=== PATIENT | male | born 1930 | race Caucasian/White ===

== ENCOUNTER 2016-12-06 08:14 | Inpatient (IN) | payer MEDICARE, SELFPAY ==
[2016-12-06] MEDS ORDERED: Meropenem 500 MG SDV ONE (08:18)
[2016-12-06] MEDS ORDERED: Dextrose 5%-Lactated Ringers 1,000 ML IV SCH (10:30)
[2016-12-06] MEDS ORDERED: Succinylcholine/Normal Saline 200 MG/10 ML Syringe ONE (11:48)
[2016-12-06] MEDS ORDERED: Ondansetron 4 MG/2 ML SDV ONE (11:48)
[2016-12-06] MEDS ORDERED: Dexamethasone 4 MG/ML SDV ONE (11:48)
[2016-12-06] MEDS ORDERED: fentaNYL 250 MCG/5 ML SDV ONE (11:48)
[2016-12-06] MEDS ORDERED: Rocuronium 50 MG/5 ML Vial ONE (11:48)
[2016-12-06] MEDS ORDERED: Propofol 200 MG/20 ML SDV ONE (11:48)
[2016-12-06] MEDS ORDERED: Neostigmine Methylsulfate 1 MG/ML 5 ML Syringe ONE (11:48)
[2016-12-06] MEDS ORDERED: Naloxone 0.4 MG/ML SDV IVPUSH PRN (12:00)
[2016-12-06] MEDS ORDERED: Scopolamine 1.5 MG Transdermal Patch ONE (13:00)
[2016-12-06] MEDS: cefOXitin 2 GM in Sodium Chloride 0.9% 50 ML IV ONE ×2 (13:28→17:20)
[2016-12-06] MEDS ORDERED: fentaNYL 100 MCG/2 ML SDV ONE (13:55)
[2016-12-06] MEDS ORDERED: Sodium Chloride 0.9% 10 ML ONE (13:56)
[2016-12-06] MEDS ORDERED: Lactated Ringers 1,000 ML ONE (14:16)
[2016-12-06] MEDS ORDERED: diphenhydrAMINE 50 MG/ML SDV IVPUSH PRN (16:03)
[2016-12-06] MEDS ORDERED: Meperidine PF 50 MG/ML Syringe IM PRN (16:04)
[2016-12-06] MEDS ORDERED: Ondansetron 4 MG/2 ML SDV IVPUSH PRN (16:07)
[2016-12-06] MEDS: fentaNYL 2,500 MCG in Sodium Chloride 0.9% 200 ML EPIDUR SCH (16:11)
[2016-12-06] MEDS: Dextrose 5%-Lactated Ringers 1,000 ML IV SCH (16:37)
[2016-12-06] MEDS: Naloxone 0.4 MG/ML SDV IV PRN (16:37)
[2016-12-06] MEDS: VERIFY SCOPOLAMINE PATCH TOP SCH (17:19)
[2016-12-06] MEDS: Pantoprazole 40 MG Vial IV SCH (17:19)
[2016-12-06] MEDS: Acetaminophen 1,000 MG in Premix Bag 1 BAG IV SCH (19:55)
[2016-12-06] MEDS: cefOXitin 2 GM in Sodium Chloride 0.9% 50 ML IV SCH (20:30)
[2016-12-06] MEDS: Tamsulosin 0.4 MG Cap.ER PO SCH (20:51)
[2016-12-06] MEDS ORDERED: Carvedilol 12.5 MG Tab PO SCH (21:00)
[2016-12-06] MEDS ORDERED: Lactated Ringers 500 ML IV SCH (21:00)
[2016-12-07] MEDS: Naloxone 0.4 MG/ML SDV IV PRN ×3 (00:03→19:09)
[2016-12-07] MEDS: Dextrose 5%-Lactated Ringers 1,000 ML IV SCH ×3 (00:03→19:09)
[2016-12-07] MEDS ORDERED: Lactated Ringers 500 ML IV SCH (00:45)
[2016-12-07] MEDS: Acetaminophen 1,000 MG in Premix Bag 1 BAG IV SCH ×2 (01:36→09:18)
[2016-12-07] MEDS: cefOXitin 2 GM in Sodium Chloride 0.9% 50 ML IV SCH ×2 (02:05→10:03)
[2016-12-07] MEDS ORDERED: Lactated Ringers 500 ML IV ONE (05:00)
[2016-12-07] MEDS ORDERED: Enoxaparin 40 MG/0.4 ML Syringe SUBCUT ONE (09:00)
[2016-12-07] MEDS: Spironolactone 25 MG Tab PO SCH (09:20)
[2016-12-07] MEDS: Ibuprofen 400 MG Tab PO SCH ×3 (09:20→21:45)
[2016-12-07] MEDS: Sennosides 8.6 MG Tab PO SCH (09:21)
[2016-12-07] MEDS: Bisacodyl 5 MG Tab PO SCH ×2 (09:21→21:45)
[2016-12-07] MEDS: Carvedilol 6.25 MG Tab PO SCH ×2 (09:22→21:45)
[2016-12-07] MEDS: VERIFY SCOPOLAMINE PATCH TOP SCH (10:02)
--- NOTE | 2016-12-07 10:49 | PN ---
DATE OF SERVICE: 12/07/2016 The patient has been afebrile with stable vital signs and needs some additional IV fluid for urine output issues overnight. Otherwise, he has been clinically stable. Oral intake was fair. We will begin a regular diet today and start the scheduled ibuprofen and tramadol along with senna and Dulcolax tablets. I will turn down the IV rate later today and plan to proceed with delayed primary closure. We will hold Lovenox for today and start that after the epidural catheter is taken out tomorrow morning at the time of the delayed primary closure. Arturo Philip MD /[id number]
[2016-12-07] MEDS: traMADol 50 MG Tab PO SCH ×3 (11:30→23:28)
[2016-12-07] MEDS: fentaNYL 2,500 MCG in Sodium Chloride 0.9% 200 ML EPIDUR SCH (14:43)
[2016-12-07] MEDS: Acetaminophen 325 MG Tab PO SCH ×2 (14:47→19:30)
[2016-12-07] MEDS: Pantoprazole 40 MG Vial IV SCH (17:45)
[2016-12-07] MEDS: Tamsulosin 0.4 MG Cap.ER PO SCH (21:45)
[2016-12-08] MEDS: Furosemide 20 MG/2 ML VIAL IVPUSH ONE ×2 (00:42→00:55)
[2016-12-08] MEDS ORDERED: Lactated Ringers 500 ML IV SCH (01:00)
[2016-12-08] MEDS: Acetaminophen 325 MG Tab PO SCH ×4 (01:13→20:28)
[2016-12-08] MEDS: traMADol 50 MG Tab PO SCH ×4 (03:39→22:56)
[2016-12-08] MEDS ORDERED: Furosemide 20 MG/2 ML VIAL IVPUSH ONE (04:21)
[2016-12-08] MEDS: Ibuprofen 400 MG Tab PO SCH ×4 (05:03→22:56)
[2016-12-08] MEDS: Dextrose 5%-Lactated Ringers 1,000 ML IV SCH ×3 (06:04→19:04)
[2016-12-08] MEDS: Naloxone 0.4 MG/ML SDV IV PRN (06:05)
[2016-12-08] MEDS ORDERED: Bupivacaine 0.5% 50 ML MDV ONE (06:54)
[2016-12-08] MEDS ORDERED: Lidocaine 1% with EPINEPHrine 1:100,000 50 ML MDV ONE (06:54)
[2016-12-08] MEDS ORDERED: Meropenem 500 MG SDV ONE (06:55)
[2016-12-08] MEDS ORDERED: Propofol 200 MG/20 ML SDV ONE (07:22)
[2016-12-08] MEDS ORDERED: Magnesium Hydroxide 400 MG/5 ML Susp 30 ML Cup PO ONE (10:00)
[2016-12-08] MEDS: Bisacodyl 5 MG Tab PO SCH ×2 (10:26→20:30)
[2016-12-08] MEDS: Spironolactone 25 MG Tab PO SCH (10:29)
[2016-12-08] MEDS: Sennosides 8.6 MG Tab PO SCH (10:30)
[2016-12-08] MEDS: VERIFY SCOPOLAMINE PATCH TOP SCH (10:31)
[2016-12-08] MEDS: Carvedilol 6.25 MG Tab PO SCH ×2 (10:32→20:29)
[2016-12-08] MEDS: Haloperidol Lactate 5 MG/ML SDV IV PRN ×2 (15:20→19:51)
[2016-12-08] MEDS: Pantoprazole 40 MG Vial IV SCH (16:56)
[2016-12-08] MEDS ORDERED: Lactated Ringers 500 ML IV STA (18:32)
[2016-12-08] MEDS: Tamsulosin 0.4 MG Cap.ER PO SCH (20:31)
[2016-12-08] MEDS ORDERED: Lidocaine 2% Jelly 10 ML Urojet MUCMEM ONE (22:48)
[2016-12-08] MEDS ORDERED: Lidocaine 2% Jelly 10 ML Urojet ONE (23:19)
[2016-12-09] MEDS: Haloperidol Lactate 5 MG/ML SDV IV PRN (00:57)
[2016-12-09] MEDS: Acetaminophen 325 MG Tab PO SCH ×4 (02:35→20:42)
[2016-12-09] MEDS: traMADol 50 MG Tab PO SCH (04:07)
[2016-12-09] MEDS: Ibuprofen 400 MG Tab PO SCH ×4 (06:59→21:22)
[2016-12-09] MEDS: Carvedilol 6.25 MG Tab PO SCH ×2 (08:31→20:43)
[2016-12-09] MEDS: Spironolactone 25 MG Tab PO SCH (08:31)
[2016-12-09] MEDS: Enoxaparin 40 MG/0.4 ML Syringe SUBCUT SCH (08:32)
[2016-12-09] MEDS: Bisacodyl 5 MG Tab PO SCH ×2 (08:32→20:42)
[2016-12-09] MEDS: Sennosides 8.6 MG Tab PO SCH (08:32)
[2016-12-09] MEDS: Pantoprazole 40 MG Tab.CR PO SCH (15:52)
[2016-12-09] MEDS: Dextrose 5%-Lactated Ringers 1,000 ML IV SCH (15:53)
[2016-12-09] MEDS: Tamsulosin 0.4 MG Cap.ER PO SCH (20:43)
[2016-12-10] MEDS: Dextrose 5%-Lactated Ringers 1,000 ML IV SCH (00:10)
[2016-12-10] MEDS: Acetaminophen 325 MG Tab PO SCH ×4 (03:29→21:22)
[2016-12-10] MEDS: Ibuprofen 400 MG Tab PO SCH ×4 (05:13→21:22)
[2016-12-10] MEDS ORDERED: Sodium Chloride 0.9% 10 ML Syringe IV PRN (07:44)
[2016-12-10] MEDS: Pantoprazole 40 MG Tab.CR PO SCH (07:47)
[2016-12-10] MEDS: Carvedilol 6.25 MG Tab PO SCH ×2 (08:54→21:21)
[2016-12-10] MEDS: Enoxaparin 40 MG/0.4 ML Syringe SUBCUT SCH (08:55)
[2016-12-10] MEDS: Spironolactone 25 MG Tab PO SCH (08:55)
[2016-12-10] MEDS: Sennosides 8.6 MG Tab PO SCH (14:37)
[2016-12-10] MEDS: Tamsulosin 0.4 MG Cap.ER PO SCH (21:21)
[2016-12-11] MEDS: Acetaminophen 325 MG Tab PO SCH ×2 (01:43→07:10)
[2016-12-11] MEDS ORDERED: Witch Hazel Medicated Pads 100/Jar TOP PRN (01:51)
[2016-12-11] MEDS: Bisacodyl 5 MG Tab PO SCH (04:51)
[2016-12-11] MEDS: Ibuprofen 400 MG Tab PO SCH ×2 (05:52→10:01)
[2016-12-11 07:00] VITALS: BP 115/62
[2016-12-11] MEDS: Pantoprazole 40 MG Tab.CR PO SCH (07:11)
[2016-12-11] MEDS: Carvedilol 6.25 MG Tab PO SCH (08:01)
[2016-12-11] MEDS: Enoxaparin 40 MG/0.4 ML Syringe SUBCUT SCH (08:02)
[2016-12-11] MEDS: Spironolactone 25 MG Tab PO SCH (08:02)
[2016-12-11] MEDS: Sennosides 8.6 MG Tab PO SCH (08:02)
--- NOTE | 2016-12-12 09:05 | PN ---
DATE OF SERVICE: 12/09/2016 The patient has been afebrile with stable vital signs. Oral intake was fair, around 700 mL, and he moved his bowels. He, in the nighttime especially, is very confused. He did pull his IV out once and was restarted. He also retained urine and Trivedi catheter was placed back. He is on Flomax. The plan at this point will be to continue the oral intake. We will leave the Trivedi catheter until tomorrow morning and maximize activity, and discontinue the tramadol as that is the primary medication that might be causing some confusion. Arturo Philip MD /[id number]
--- NOTE | 2016-12-12 10:32 | PN ---
DATE OF SERVICE: 12/10/2016 The patient has been afebrile with stable vital signs, and confusion is improving somewhat. Oral intake has stabilized. He has not voided after the urinary catheter has been removed this morning. Urine output was 3600 mL yesterday, so we will saline lock the IV, and he is on regular diet. We will have discharge planning evaluate the home situation. He may be ready for discharge home tomorrow depending on how discharge planning evaluation goes. Arturo Philip MD /[id number]
--- NOTE | 2016-12-12 10:38 | DISCH ---
FINAL DIAGNOSES: 1. Sigmoid colon mass. 2. History of coronary artery disease, status post biventricular pacemaker insertion. 3. Posterior aortic and mitral insufficiency. 4. History of ischemic cardiomyopathy. 5. History of hearing loss. 6. History of hemorrhoids. 7. History of arthritis. 8. Postoperative urinary retention. 9. Transient postoperative confusion. OPERATIVE PROCEDURE: On 12/06, exploratory laparotomy with: 1. Rectosigmoid colon resection with coloproctostomy. 2. Mobilization of splenic flexure to facilitate the pelvic anastomosis. 3. Mobilization of omentum into pelvis to displace small bowel from pelvis. HOSPITAL COURSE: This is an 86-year-old male, recently presenting with a large mass in the distal sigmoid colon. After preoperative evaluation and discussion, he wished to proceed with a resection of this. Using the fast-track protocol, this was accomplished on the day of admission. Postoperatively, the patient did have some urinary retention, but is now urinating satisfactorily and otherwise had some transient confusion. He did receive some dose of Haldol. This has now well cleared. He will be discharged home on ibuprofen 400 mg p.o. q.6 hours p.r.n. along with Tylenol 650 mg p.o. q.4 hours p.r.n., and otherwise, we will continue his usual at-home medications. Pathology on the resected specimen is pending. The followup Dr. Philip, 12/16/[address] Jeff in around 2 weeks for general medical followup.
--- NOTE | 2016-12-12 10:47 | PN ---
DATE OF SERVICE: 12/08/2016 The patient has been afebrile with stable vital signs. He had increased pulse pressure overnight, and we gave him some Lasix today with good urine output resulting from that. Otherwise, he has been fairly confused overnight. This hopefully will clear as we get the epidural catheter infusion off and daylight hits. Otherwise, he will be given some Haldol p.r.n. Trivedi catheter will be removed and will do the delayed primary closure. Otherwise, resume oral intake. Arturo Philip MD /[id number]
--- NOTE | 2016-12-14 17:10 | OR ---
DATE OF PROCEDURE: 12/08/2016 PREOPERATIVE DIAGNOSIS: Open abdominal incision. POSTOPERATIVE DIAGNOSIS: Open abdominal incision. OPERATIVE PROCEDURE: Delayed primary closure of open abdominal incision. ANESTHESIA: Local plus IV sedation. INDICATION FOR PROCEDURE: The patient is an 86-year-old status post rectosigmoid resection 48 hours earlier. At the time of the procedure, the patient was felt to be at high risk for wound infection . Primary closure was undertaken. Given this, the wound was packed open for a planned delayed primary closure at this time. Potential risks of the procedure including bleeding and infection were reviewed, and the patient wishes to proceed. DETAILS OF PROCEDURE: The patient was taken to the operating room and placed in a supine position. IV sedation was administered, after which the operative dressing was taken down. The wound was inspected and found to be clean. The area was then prepped and draped, anesthetized with 1% lidocaine mixed with Marcaine and irrigated with meropenem-containing saline solution. The incision was then closed with a layer of 3-0 Vicryl stitch deep and 4- 0 Vicryl subdermal stitches along with alexys. A dressing was applied. The patient was taken to the recovery room in satisfactory condition. Arturo Philip MD /[id number]
--- NOTE | 2016-12-15 15:16 | OR ---
DATE OF PROCEDURE: 12/06/2016 PREOPERATIVE DIAGNOSIS: Distal sigmoid colon mass. POSTOPERATIVE DIAGNOSIS: Distal sigmoid colon mass. PROCEDURES: Exploratory laparotomy with: 1. Rectosigmoid colon resection with coloproctostomy (28946). 2. Mobilization of splenic flexure to facilitate the coloproctostomy ([id number]). 3. Mobilization of omentum into pelvis to displace small bowel from pelvic and abdominal bhandari (26094). ANESTHESIA: General plus epidural. INDICATIONS FOR PROCEDURE: This is an 86-year-old male who underwent a colonoscopy last week, which showed a large mass within the distal sigmoid colon. This was right around 25 cm from the dentate line. Plan is to proceed with a resection of that area. Potential risks including bleeding, infection, injury to underlying viscera such as the ureters or adjacent to the bowel, possible leaks from GI tract closures were all reviewed, and the patient wishes to proceed. DETAILS OF PROCEDURE: The patient was taken to the operating room. After general endotracheal anesthesia was induced, the patient was placed in a lithotomy position. Trivedi catheter was inserted and the abdomen prepped and draped. A midline incision was then made from the umbilicus down to the level of the pubis, carried down to full-thickness abdominal wall. Upon entering the peritoneal cavity, general exploration was undertaken. The mass within the distal sigmoid colon could then easily be identified. This did not appear to have any fixation to the adjacent pelvic structures, and there was no obvious lymphadenopathy within the superior hemorrhoidal column or periaortic area, likewise there were no areas of peritoneal seeding or ascites and no liver or other visceral metastases evident. At this point, the proximal sigmoid colon was divided with the VAHID stapler. The peritoneal reflection of the proximal sigmoid colon and descending colon and then splenic flexure were then taken down with Harmonic scalpel. Mobilization of splenic flexure then allowed the divided end of the sigmoid colon to be delivered well into the pelvis. At this point the rectum was mobilized upward, and roughly 8 cm distal to the palpable mass, the rectum was divided with the VAHID stapler as well. The peritoneal side of the distal segment of the colon and rectum was then divided, and at that point, the superior hemorrhoidal vessels were divided with VAHID alexys near its origin. Again dissection continued downward with care used to avoid injury to the right and left ureters and then Steri-Strips were sequentially divided with the VAHID alexys as well, and the specimen delivered from the field. At this point, the anal opening was assessed and this felt it would accommodate a 28-mm EEA stapler. The anvil of the stapler was then placed into the distal sigmoid colon after this was opened and then re-stapled. The main body of the EEA stapler was brought rectally up to the apex of the rectal staple line, and then 2 components of stapler connected, fired, and the coloproctostomy accomplished. Upon removal of stapler, double donuts of mucosa were noted within it, and the area was then inspected with colonoscope while submerged with antibiotic-containing saline solution. Anastomosis was grossly intact with good blood supply identified on each side and no air bubbles or signs of leak were seen. The colonoscope was then removed. The coloproctostomy was then reinforced with some 3-0 Vicryl seromuscular stitch, along with fibrin sealant. In the event, the patient would at any point require pelvic radiation, the omentum was mobilized down into the pelvis to displace the small bowel away from those areas. This was fixed with some 3-0 Vicryl stitch and, at that point, the midline peritoneum was approximated with #2 Vicryl stitch, as was the anterior rectus sheath and fascia. The skin and subcutaneous tissue were felt to be high risk for a wound infection if primary closure was undertaken. Given this, these were packed open for a planned delayed primary closure in 48 hours. There were no evident complications. The patient was taken to the recovery room in a satisfactory condition. Arturo Philip MD /[id number]
== END 2016-12-11 10:30 | disposition still patient (30) | DRG 330 ==
LOC: JP.SDSSCHI 09:35 → JP.SDS 09:35 → EDSTATUS 12:30 → JP.MS 15:45
PROVIDERS: ADMIT Surgery; ATTEND Surgery
PROC: 0DBP0ZZ Excision of Rectum, Open Approach (ICD-10-PCS; principal; 2016-12-06)
PROC: 0DBN0ZZ Excision of Sigmoid Colon, Open Approach (ICD-10-PCS; principal; 2016-12-06)
PROC: 0WQF0ZZ Repair Abdominal Wall, Open Approach (ICD-10-PCS; 2016-12-08)
DX: C7A.025 Malignant carcinoid tumor of the sigmoid colon (principal); C19 Malignant neoplasm of rectosigmoid junction; C18.7 Malignant neoplasm of sigmoid colon; Z95.0 Presence of cardiac pacemaker; R33.9 Retention of urine, unspecified; R41.0 Disorientation, unspecified; Z48.1 Encounter for planned postprocedural wound closure; I11.0 Hypertensive heart disease with heart failure; I50.9 Heart failure, unspecified; I25.5 Ischemic cardiomyopathy; I25.10 Atherosclerotic heart disease of native coronary artery without angina pectoris; M19.90 Unspecified osteoarthritis, unspecified site; H91.90 Unspecified hearing loss, unspecified ear; I35.0 Nonrheumatic aortic (valve) stenosis; I35.1 Nonrheumatic aortic (valve) insufficiency; I34.0 Nonrheumatic mitral (valve) insufficiency; Z79.82 Long term (current) use of aspirin
CPT/HCPCS: 36415; 80048; 82378; 83735; 83880; 84100; 88309; 94762; 97110-GP; 97162-GP; 97530-GP; A9270-GY; C9113; J0131; J0694; J1100; J1200; J1630; J1650; J1940; J2175; J2185; J2310; J2405; J2704; J3010; J7042; J7050; J7120

== ENCOUNTER 2017-06-15 08:01 | Day surgery (SDC) | payer MEDICARE, SELFPAY ==
[2017-06-15] MEDS ORDERED: Dextrose 5%-Lactated Ringers 1,000 ML IV SCH (08:30)
[2017-06-15] MEDS ORDERED: fentaNYL 100 MCG/2 ML SDV ONE (08:53)
[2017-06-15] MEDS ORDERED: Propofol 200 MG/20 ML SDV ONE (08:53)
[2017-06-15 11:28] VITALS: BP 122/67
--- NOTE | 2017-06-20 13:05 | OR ---
DATE OF PROCEDURE: 06/15/2017 PREOPERATIVE DIAGNOSIS: Status post sigmoid colon resection for carcinoma. POSTOPERATIVE DIAGNOSIS: Two tiny areas of fleshy tissue at colorectal anastomosis. OPERATIVE PROCEDURE: Flexible colonoscopy with biopsies of colorectal anastomosis. ANESTHESIA: IV sedation. INDICATION FOR PROCEDURE: This is an 86-year-old status post sigmoid colon resection for carcinoma in December of this year. Plan is to proceed with a flexible colonoscopy with biopsies as indicated. Potential risks including bleeding and perforation were discussed, and the patient wishes to proceed. DETAILS OF PROCEDURE: The patient was taken to the operating room and placed in a left lateral decubitus position. IV sedation was administered, after which the colonoscope was passed into the rectum, and thereafter passed eventually to the level of the cecum. The colorectal anastomosis was identified. There were two tiny fleshy areas not more than half millimeter in size along the anastomosis. Otherwise, the colonoscopy was entirely normal. Upon withdrawal of the scope, with the prep being quite good, those 2 areas were excised by means of biopsy forceps and sent for histologic evaluation. Minimal bleeding from the biopsy sites was seen and the procedure then concluded. Assuming these are benign, the patient should undergo a repeat colonoscopy in 1 year. If they happen to be malignant, we will see the patient back in the short-term and decide treatment options. Arturo Philip MD /[id number]
== END 2017-06-15 11:15 | disposition home or self-care (01) ==
LOC: JP.SDS 08:01
PROVIDERS: ATTEND Surgery
DX: K91.89 Other postprocedural complications and disorders of digestive system (principal); K52.9 Noninfective gastroenteritis and colitis, unspecified; C18.7 Malignant neoplasm of sigmoid colon; I25.10 Atherosclerotic heart disease of native coronary artery without angina pectoris; I25.2 Old myocardial infarction; Z90.49 Acquired absence of other specified parts of digestive tract
CPT/HCPCS: 45380; J2704; J3010; J7042; 88305

== ENCOUNTER 2017-08-24 12:23 | Emergency (ER) | payer MEDICARE, SELFPAY ==
[2017-08-24 12:59] VITALS: BP 118/66
--- NOTE | 2017-08-24 13:57 | EDM.PDOC ---
ED HPI GENERAL MEDICAL PROBLEM - General Chief Complaint: Gastrointestinal Problem Stated Complaint: WILL HAS A PACE MAKER Time Seen by Provider: 08/24/17 13:30 Source of Information: Reports: Patient, Family History Limitations: Reports: No Limitations - History of Present Illness INITIAL COMMENTS - FREE TEXT/NARRATIVE: 87-year-old male who has a pacemaker that is scheduled to get a battery replacement in the near future is worried that something is wrong because every morning for the last 7-10 days he's had some nausea for the first 1-2 hours upon awaking. Eating or drinking something helps. No fever or chills, no vomiting, no diarrhea, no other symptoms. He feels no palpitations, shortness of breath or chest pain. He called the cardiology clinic to ask them if they thought the nausea could be related to his pacemaker and they told him to come to the emergency room. He arrives completely asymptomatic, stable, without current symptoms. Severity: Mild Improves with: Reports: Other (Seems to improve with putting something into his stomach such as drinking or eating a small amount of food) Associated Symptoms: Denies: Diaphoresis, Loss of Appetite, Shortness of Breath - Related Data Allergies Allergy/AdvReac Type Severity Reaction Status Date / Time No Known Allergies Allergy Verified 08/24/17 13:04 Home Meds: Home Meds Aspirin [[place] Aspirin] 81 mg PO DAILY 03/12/15 [History] Carvedilol [Carvedilol] 6.25 mg PO BID 03/12/15 [History] Furosemide [Furosemide] 20 mg PO DAILY 03/12/15 [History] Potassium Chloride 10 meq PO DAILY 03/12/15 [History] Spironolactone [Spironolactone] 25 mg PO DAILY 03/12/15 [History] Sotalol HCl [Sotalol] 80 mg PO BID 11/23/16 [History] Aloe Vera 25 mg PO DAILY 06/13/17 [History] Lutein-Bilberry 1 cap PO DAILY 06/13/17 [History] Terazosin HCl [Terazosin] 2 mg PO BEDTIME 06/13/17 [History] Past Medical History HEENT History: Reports: Hard of Hearing, Impaired Vision Cardiovascular History: Reports: Arrhythmia, Automatic Implantable Cardioverter Defibrillators, Bypass, CAD, [place], Pacemaker, SOB on Exertion Respiratory History: Reports: SOB Gastrointestinal History: Reports: Colon Polyp, Hemorrhoids, Other (See Below) Other Gastrointestinal History: rectal bleeding, colon tumor Genitourinary History: Reports: BPH, Renal Calculus Musculoskeletal History: Reports: Arthritis, Osteoarthritis Neurological History: Reports: None Psychiatric History: Reports: None Endocrine/Metabolic History: Reports: None Hematologic History: Reports: Blood Transfusion(s) Immunologic History: Reports: None Oncologic (Cancer) History: Reports: Colon Dermatologic History: Reports: None - Infectious Disease History Infectious Disease History: Reports: Chicken Pox - Past Surgical History HEENT Surgical History: Reports: Tonsillectomy Cardiovascular Surgical History: Reports: AICD, Coronary Artery Bypass Respiratory Surgical History: Reports: None GI Surgical History: Reports: Colon, Colonoscopy, Small Bowel Male Surgical History: Reports: TURP-Transurethral Resection of Prostate Endocrine Surgical History: Reports: None Neurological Surgical History: Reports: None Musculoskeletal Surgical History: Reports: Arthroscopic Knee Oncologic Surgical History: Reports: None Dermatological Surgical History: Reports: None Social & Family History - Family History Family Medical History: Noncontributory - Tobacco Use Smoking Status *Q: Never Smoker Second Hand Smoke Exposure: No - Caffeine Use Caffeine Use: Reports: Soda - Alcohol Use Days Per Week of Alcohol Use: 0 - Recreational Drug Use Recreational Drug Use: No ED ROS GENERAL - Review of Systems Review Of Systems: See Below Constitutional: Denies: Fever, Chills, Malaise HEENT: Reports: No Symptoms Respiratory: Denies: Shortness of Breath Cardiovascular: Denies: Chest Pain GI/Abdominal: Reports: Nausea. Denies: Abdominal Pain, Hematochezia, Vomiting : Reports: Other (Has chronic but unchanged frequent urination) Skin: Reports: No Symptoms ED EXAM, GENERAL - Physical Exam Exam: See Below Exam Limited By: No Limitations General Appearance: Alert, No Apparent Distress Respiratory/Chest: No Respiratory Distress, Lungs Clear Cardiovascular: Regular Rate, Rhythm. No: Extra Beats GI/Abdominal: Soft, Non-Tender Extremities: Normal Inspection. No: Pedal Edema Neurological: Alert, Oriented Psychiatric: Normal Affect, Normal Mood Skin Exam: Warm, Dry Course - Vital Signs Last Recorded V/S: Last Vital Signs Temp 97.1 F 08/24/17 13:06 Pulse 78 08/24/17 13:06 Resp 16 08/24/17 13:06 BP 118/66 08/24/17 13:06 Pulse Ox 99 11/09/17 13:06 - Orders/Labs/Meds Labs: Laboratory Tests 08/24/17 08/24/17 Range/Units 14:05 14:05 WBC 4.7 (4.5-11.0) K/uL RBC 4.37 (4.30-5.90) M/uL Hgb 13.7 (12.0-15.0) g/dL Hct 40.9 (40.0-54.0) % MCV 94 (80-98) fL MCH 31 (27-31) pg MCHC 34 (32-36) % Plt Count 185 (150-400) K/uL Neut % (Auto) 61 (36-66) % Lymph % (Auto) 21 L (24-44) % Morrill % (Auto) 15 H (2-6) % Eos % (Auto) 3 (2-4) % Baso % (Auto) 0 (0-1) % Sodium 141 (140-148) mmol/L Potassium 4.2 (3.6-5.2) mmol/L Chloride 106 (100-108) mmol/L Carbon Dioxide 29 (21-32) mmol/L Anion Gap 6.2 (5.0-14.0) mmol/L BUN 40 H D (7-18) mg/dL Creatinine 1.2 (0.8-1.3) mg/dL Est Cr Clr Drug Dosing 40.80 mL/min Estimated GFR (MDRD) 58 L (>60) Glucose 96 (74-106) mg/dL Calcium 8.8 (8.5-10.1) mg/dL Total Bilirubin 1.4 H (0.2-1.0) mg/dL AST 21 (15-37) U/L ALT 14 (12-78) U/L Alkaline Phosphatase 71 D (46-116) U/L Troponin I 0.017 (0.000-0.056) ng/mL Total Protein 6.6 (6.4-8.2) g/dL Albumin 3.2 L (3.4-5.0) g/dL Globulin 3.4 (2.3-3.5) g/dL Albumin/Globulin Ratio 0.9 L (1.2-2.2) - Re-Assessments/Exams Free Text/Narrative Re-Assessment/Exam: 08/24/17 13:58 He has not had labs recently so CBC, CMP and troponin were obtained. 08/24/17 14:45 Labs are all reassuring. Troponin is negative. He has an elevated bilirubin but in checking past levels it is a chronic finding. I see no need to add any medications or treatment at this time, he can return anytime if worsening or concerns. Departure - Departure Time of Disposition: 15:16 Disposition: Home, Self-Care 01 Condition: Good Clinical Impression: Nausea alone - Discharge Information Instructions: Nausea, Adult Referrals: Sowmya Menjivar MD [Primary Care Provider] - Forms: ED Department Discharge Care Plan Goals: Increase diet and activity as tolerated, return anytime if worsening such as vomiting or fever.
== END 2017-08-24 15:16 | disposition home or self-care (01) ==
LOC: JP.ED 12:23
DX: R11.0 Nausea (principal); M19.90 Unspecified osteoarthritis, unspecified site; Z79.899 Other long term (current) drug therapy; Z79.82 Long term (current) use of aspirin
CPT/HCPCS: 36415; 80053; 84484; 85025; 99283; 99284

== ENCOUNTER 2017-09-14 12:00 | Inpatient (IN) | payer MEDICARE, SELFPAY ==
[2017-09-14] MEDS ORDERED: Acetaminophen/oxyCODONE 325-5 MG Tab PO ONE (12:46)
--- NOTE | 2017-09-14 12:53 | EDM.PDOC ---
ED HPI GENERAL MEDICAL PROBLEM - General Chief Complaint: General Stated Complaint: FELL Time Seen by Provider: 09/14/17 12:40 Source of Information: Reports: Patient, Old Records, RN History Limitations: Reports: No Limitations - History of Present Illness INITIAL COMMENTS - FREE TEXT/NARRATIVE: 87 yo male fell today hitting his R knee hard on the ground. Now has pain to the R prox/lateral thigh and posterior hip areas. Was able to get himself up off the ground and walked only with extreme difficulty. Onset: Today Onset Date: 09/14/17 Onset Time: 11:15 Duration: Minutes: Location: Reports: Lower Extremity, Right Quality: Reports: Ache Severity: Moderate Improves with: Reports: Rest Worsens with: Reports: Movement Context: Reports: Trauma Associated Symptoms: Reports: No Other Symptoms Treatments CLINICAL EDITOR: Reports: Other (see below) (none) Right Hip Pain Score (Numeric/FACES): 5 - Related Data Allergies Allergy/AdvReac Type Severity Reaction Status Date / Time No Known Allergies Allergy Verified 09/14/17 12:25 Home Meds: Home Meds Aspirin [[place] Aspirin] 81 mg PO DAILY 03/12/15 [History] Carvedilol [Carvedilol] 6.25 mg PO BID 03/12/15 [History] Furosemide [Furosemide] 20 mg PO DAILY 03/12/15 [History] Potassium Chloride 10 meq PO DAILY 03/12/15 [History] Sotalol HCl [Sotalol] 80 mg PO BID 11/23/16 [History] Aloe Vera 25 mg PO DAILY 06/13/17 [History] Lutein-Bilberry 1 cap PO DAILY 06/13/17 [History] Terazosin HCl [Terazosin] 2 mg PO BEDTIME 06/13/17 [History] Past Medical History HEENT History: Reports: Hard of Hearing, Impaired Vision Cardiovascular History: Reports: Arrhythmia, Automatic Implantable Cardioverter Defibrillators, Bypass, CAD, CT, Pacemaker, SOB on Exertion Respiratory History: Reports: SOB Gastrointestinal History: Reports: Colon Polyp, Hemorrhoids, Other (See Below) Other Gastrointestinal History: rectal bleeding, colon tumor Genitourinary History: Reports: BPH, Renal Calculus Musculoskeletal History: Reports: Arthritis, Osteoarthritis Neurological History: Reports: None Psychiatric History: Reports: None Endocrine/Metabolic History: Reports: None Hematologic History: Reports: Blood Transfusion(s) Immunologic History: Reports: None Oncologic (Cancer) History: Reports: Colon Dermatologic History: Reports: None - Infectious Disease History Infectious Disease History: Reports: Chicken Pox - Past Surgical History Head Surgeries/Procedures: Reports: None HEENT Surgical History: Reports: Tonsillectomy Cardiovascular Surgical History: Reports: AICD, Coronary Artery Bypass, Other ( See Below) Other Cardiovascular Surgeries/Procedures: pacemaker replaced 08/24/17 Respiratory Surgical History: Reports: None GI Surgical History: Reports: Colon, Colonoscopy, Small Bowel Male Surgical History: Reports: TURP-Transurethral Resection of Prostate Musculoskeletal Surgical History: Reports: Arthroscopic Knee Social & Family History - Family History Family Medical History: Noncontributory - Tobacco Use Smoking Status *Q: Never Smoker Second Hand Smoke Exposure: No - Caffeine Use Caffeine Use: Reports: Soda, Tea - Alcohol Use Days Per Week of Alcohol Use: 0 - Recreational Drug Use Recreational Drug Use: No ED ROS GENERAL - Review of Systems Review Of Systems: See Below Constitutional: Reports: No Symptoms Musculoskeletal: Reports: Joint Pain (R hip) Skin: Reports: No Symptoms Neurological: Reports: No Symptoms ED EXAM, GENERAL - Physical Exam Exam: See Below Exam Limited By: No Limitations General Appearance: Alert, WD/WN, No Apparent Distress Eye Exam: Bilateral Eye: Normal Inspection Ears: Normal External Exam, Normal Canal Ear Exam: Bilateral Ear: Auricle Normal, Canal Normal Nose: Normal Inspection, Normal Mucosa, No Blood Throat/Mouth: Normal Inspection, Normal Lips, Normal Oropharynx, Normal Voice, No Airway Compromise Head: Atraumatic, Normocephalic Neck: Normal Inspection, Supple Respiratory/Chest: No Respiratory Distress, Lungs Clear, Normal Breath Sounds, No Accessory Muscle Use Cardiovascular: Regular Rate, Rhythm, No Edema GI/Abdominal: Normal Bowel Sounds, Soft, Non-Tender, No Distention Back Exam: Normal Inspection. No: CVA Tenderness (R), CVA Tenderness (L) Extremities: Normal Inspection, No Pedal Edema, Limited Range of Motion ( internal and external rotation not terrribly painful, hip flexion on right does increase his pain. ) Neurological: Alert, Oriented, CN II-XII Intact, Normal Cognition, No Motor/ Sensory Deficits Psychiatric: Normal Affect, Normal Mood Skin Exam: Warm, Dry, Intact, Normal Color, No Rash Lymphatic: No Adenopathy Course - Vital Signs Last Recorded V/S: Last Vital Signs Temp 35.2 C 09/14/17 12:23 Pulse 60 09/14/17 12:23 Resp 16 09/14/17 12:23 BP 129/69 09/14/17 12:23 Pulse Ox 98 09/14/17 12:23 - Orders/Labs/Meds Orders: Active Orders 24 hr Category Date Time Status Hip Min 2V or 3V Rt [CR] Stat Exams 09/14/17 12:47 Taken Pelvis 1V or 2V [CR] Stat Exams 09/14/17 12:47 Taken Sodium Chloride 0.9% [Saline Flush] Med 09/14/17 13:18 Ordered 10 ml FLUSH ASDIRECTED PRN Saline Lock Insert [OM.PC] Routine Oth 09/14/17 13:18 Ordered Meds: Medications Discontinued Medications Generic Name Dose Route Start Last Admin Trade Name Freq PRN Reason Stop Dose Admin Oxycodone/Acetaminophen 1 tab 09/14/17 12:46 09/14/17 12:51 Percocet 325-5 Mg PO 09/14/17 12:47 1 tab ONETIME ONE Administration - Radiology Interpretation Free Text/Narrative:: R hip X-ray-neg pelvis X-ray-R ant and post rami fx's Departure - Departure Time of Disposition: 13:30 Disposition: Admitted As Inpatient 68 Condition: Fair Clinical Impression: Pelvis fracture, right Qualifiers: Encounter type: initial encounter Pelvic bone location: pubis Sublocation of pubis: unspecified portion of pubis Fracture type: closed Qualified Code(s): S32.501A - Unspecified fracture of right pubis, initial encounter for closed fracture - Discharge Information Referrals: Sowmya Menjivar MD [Primary Care Provider] - Forms: ED Department Discharge - My Orders Last 24 Hours: My Active Orders 09/14/17 12:47 Hip Min 2V or 3V Rt [CR] Stat Pelvis 1V or 2V [CR] Stat 09/14/17 13:18 Sodium Chloride 0.9% [Saline Flush] 10 ml FLUSH ASDIRECTED PRN Saline Lock Insert [OM.PC] Routine - Assessment/Plan Last 24 Hours: My Active Orders 09/14/17 12:47 Hip Min 2V or 3V Rt [CR] Stat Pelvis 1V or 2V [CR] Stat 09/14/17 13:18 Sodium Chloride 0.9% [Saline Flush] 10 ml FLUSH ASDIRECTED PRN Saline Lock Insert [OM.PC] Routine
[2017-09-14] MEDS ORDERED: Sodium Chloride 0.9% 10 ML Syringe FLUSH PRN ×2 (13:18→15:57)
--- NOTE | 2017-09-14 13:28 | CR ---
Right hip There is degenerative joint space loss of the hip. The femoral neck appears intact. There is evidence of nondisplaced fractures of the right superior and inferior pubic rami. Impression 1. Right-sided rami fractures.
--- NOTE | 2017-09-14 13:50 | CR ---
Pelvis There is diffuse demineralization. 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 There a re no findings of hip fracture. There are findings of nondisplaced fractures of the right superior an d inferior pubic rami. Impression: 1. Nondisplaced right-sided pubic rami fractures.
--- NOTE | 2017-09-14 14:47 | PCM.HP ---
H&P History of Present Illness - General Date of Service: 09/14/17 Admit Problem/Dx: Admission Diagnosis/Problem Admission Diagnosis/Problem Fracture of pubic ramus Source of Information: Patient, Provider, RN Notes Reviewed History Limitations: Reports: No Limitations - History of Present Illness Initial Comments - Free Text/Narative: Mr. Witt is an 87-year-old gentleman was admitted through the emergency department after he fell today and experienced pain in his right hip and pelvis secondary to pubic rami fractures. He is typically fairly active and was outside when he tripped on a piece of wood and landed on his right knee with significant force. He is denying pain in the knee but did have significant pain in the right hip and pelvis. He was brought into the emergency department for further evaluation. X-rays of the hip show no evidence of fracture but x-ray of the pelvis shows evidence of a superior and inferior pubic rami fractures. He does have a known history of underlying coronary artery disease and congestive heart failure but reports that he's had no symptoms of chest pain or pressure and no increase in dyspnea from baseline. He remains fairly active and does not feel as though he is limited in any way with his activities. Right Hip Pain Score (Numeric/FACES): 5 - Related Data Allergies/Adverse Reactions: Allergies Allergy/AdvReac Type Severity Reaction Status Date / Time No Known Allergies Allergy Verified 09/14/17 12:25 Home Medications: Home Meds Aspirin [[place] Aspirin] 81 mg PO DAILY 03/12/15 [History] Carvedilol [Carvedilol] 6.25 mg PO BID 03/12/15 [History] Furosemide [Furosemide] 20 mg PO DAILY 03/12/15 [History] Potassium Chloride 10 meq PO DAILY 03/12/15 [History] Sotalol HCl [Sotalol] 80 mg PO BID 11/23/16 [History] Aloe Vera 25 mg PO DAILY 06/13/17 [History] Lutein-Bilberry 1 cap PO DAILY 06/13/17 [History] Terazosin HCl [Terazosin] 2 mg PO BEDTIME 06/13/17 [History] Past Medical History HEENT History: Reports: Hard of Hearing, Impaired Vision Cardiovascular History: Reports: Arrhythmia, Automatic Implantable Cardioverter Defibrillators, Bypass, CAD, PA, Pacemaker, SOB on Exertion Respiratory History: Reports: SOB Gastrointestinal History: Reports: Colon Polyp, Hemorrhoids, Other (See Below) Other Gastrointestinal History: rectal bleeding, colon tumor Genitourinary History: Reports: BPH, Renal Calculus Musculoskeletal History: Reports: Arthritis, Osteoarthritis Neurological History: Reports: None Psychiatric History: Reports: None Endocrine/Metabolic History: Reports: None Hematologic History: Reports: Blood Transfusion(s) Immunologic History: Reports: None Oncologic (Cancer) History: Reports: Colon Dermatologic History: Reports: None - Infectious Disease History Infectious Disease History: Reports: Chicken Pox - Past Surgical History Head Surgeries/Procedures: Reports: None HEENT Surgical History: Reports: Tonsillectomy Cardiovascular Surgical History: Reports: AICD, Coronary Artery Bypass, Other ( See Below) Other Cardiovascular Surgeries/Procedures: pacemaker replaced 08/24/17 Respiratory Surgical History: Reports: None GI Surgical History: Reports: Colon, Colonoscopy, Small Bowel Male Surgical History: Reports: TURP-Transurethral Resection of Prostate Musculoskeletal Surgical History: Reports: Arthroscopic Knee Social & Family History - Family History Family Medical History: Noncontributory - Tobacco Use Smoking Status *Q: Never Smoker Second Hand Smoke Exposure: No - Caffeine Use Caffeine Use: Reports: Soda, Tea - Alcohol Use Days Per Week of Alcohol Use: 0 - Recreational Drug Use Recreational Drug Use: No H&P Review of Systems - Review of Systems: Review Of Systems: See Below General: Denies: Fever, Chills, Weakness HEENT: Reports: No Symptoms Pulmonary: Reports: No Symptoms Cardiovascular: Reports: No Symptoms Gastrointestinal: Reports: No Symptoms Genitourinary: Reports: No Symptoms Musculoskeletal: Reports: Other (Right pelvic and hip pain). Denies: Back Pain , Leg Pain Skin: Reports: No Symptoms Psychiatric: Reports: No Symptoms Neurological: Reports: No Symptoms Hematologic/Lymphatic: Reports: No Symptoms Immunologic: Reports: No Symptoms Exam - Exam Exam: See Below - Vital Signs Vital Signs: Last Vital Signs Temp 95.4 F 09/14/17 12:23 Pulse 62 09/14/17 13:25 Resp 16 09/14/17 12:23 BP 143/73 H 09/14/17 14:10 Pulse Ox 96 09/14/17 12:30 Weight: 130 lb - Exam Quality Assessment: DVT Prophylaxis General: Alert, Oriented, Cooperative, Mild Distress HEENT: Conjunctiva Clear, Mucosa Moist & [place], Normal Nasal Septum, Posterior Pharynx Clear, Pupils Equal. No: Hearing Intact Neck: Supple, Trachea Midline, +2 Carotid Pulse wo Bruit Lungs: Clear to Auscultation, Normal Respiratory Effort Cardiovascular: Regular Rate, Regular Rhythm, Normal S1, Normal S2 GI/Abdominal Exam: Soft, Non-Tender, No Organomegaly, No Distention Back Exam: Normal Inspection, Full Range of Motion Extremities: No Pedal Edema, Other (Right hip and pelvic pain) Skin: Warm, Dry, Intact Neurological: Cranial Nerves Intact, Strength Equal Bilateral, Normal Speech, Normal Tone, Sensation Intact. No: Focal Deficit Neuro Extensive - Mental Status: Alert, Oriented x3, Normal Mood/Affect, Normal Cognition, Memory Intact *Q Meaningful Use (ADM) - VTE *Q VTE Criteria *Q: - VTE Risk Assess *Q Each Risk Factor Represents 1 Point: None Total Score 1 Point Risk Factors: 0 Each Risk Factor Represents 2 Points: None Total Score 2 Point Risk Factors: 0 Each Risk Factor Represents 3 Points: Age 75 Years or Greater Total Score 3 Point Risk Factors: 3 Each Risk Factor Represents 5 Points: Hip, Pelvis or Leg Fracture, Less than 1 month Total Score 5 Point Risk Factors: 5 Venous Thromboembolism Risk Factor Score *Q: 8 - Stroke *Q Stroke Criteria *Q: - AMI *Q AMI Criteria *Q: Problem List Initiated/Reviewed/Updated: Yes Orders Last 24hrs: Active Orders 24 hr Category Date Time Status Patient Status Manage Transfer [TRANSFER] Routine ADT 09/14/17 14:22 Ordered Sodium Chloride 0.9% [Saline Flush] Med 09/14/17 13:18 Active 10 ml FLUSH ASDIRECTED PRN Saline Lock Insert [OM.PC] Routine Oth 09/14/17 13:18 Ordered Resuscitation Status Routine Resus Stat 09/14/17 14:25 Ordered Medication Orders Sodium Chloride (Saline Flush) 10 ml FLUSH ASDIRECTED PRN PRN Reason: Keep Vein Open Last Admin: 09/14/17 13:27 Dose: 10 ml Assessment/Plan Comment:: ASSESSMENT AND PLAN RIGHT SUPERIOR AND INFERIOR PUBIC RAMI FRACTURES-suffered when he fell this morning while walking outside and tripping on a piece of lumber. X-ray shows no evidence of hip fracture. -Cautious IV fluids for hydration -Oxycodone and/or IV Dilaudid as needed for pain -Physical therapy consult -Weightbearing as tolerated -Will likely need to pursue residential placement until he is able to ambulate independently CORONARY ARTERY DISEASE-status post previous coronary artery bypass surgery, currently asymptomatic -Continue outpatient medical regimen CONGESTIVE HEART FAILURE-well compensated on current medical therapy -Continue outpatient medical regimen MAINTENANCE ISSUES -DVT prophylaxis; Lovenox 40 mg subcutaneous daily -GI prophylaxis; not indicated -Trivedi catheter; not indicated -Nutrition; regular diet -Nicotine dependence; not required CODE STATUS-FULL CODE ADMISSION STATUS-patient will be admitted to inpatient status, expect at least a 2 night hospital stay for evaluation and management of problems as outlined above. At the time of this admission I do not reasonably expected evaluation and management of this problem will require more than a 96 hour hospital stay. DISPOSITION-anticipate discharge to home after the hospital stay. PRIMARY CARE PROVIDER-Dr. Saldivar
[2017-09-14] MEDS ORDERED: Acetaminophen 325 MG Tab PO PRN (15:57)
[2017-09-14] MEDS ORDERED: Magnesium Hydroxide 400 MG/5 ML Susp 30 ML Cup PO PRN (15:57)
[2017-09-14] MEDS ORDERED: Polyethylene Glycol 3350 Powder 17 GM Packet PO PRN (15:57)
[2017-09-14] MEDS ORDERED: Sodium Chloride 0.9% 1,000 ML IV SCH (15:57)
[2017-09-14] MEDS: HYDROmorphone 0.5 MG/0.5 ML Syringe IVPUSH PRN (16:29)
[2017-09-14] MEDS: Enoxaparin 40 MG/0.4 ML Syringe SUBCUT SCH (17:21)
[2017-09-14] MEDS: oxyCODONE 5 MG Tab PO PRN ×2 (17:23→21:47)
[2017-09-14] MEDS: Carvedilol 6.25 MG Tab PO SCH (20:00)
[2017-09-14] MEDS: Sotalol 80 MG Tab PO SCH (20:03)
[2017-09-14] MEDS ORDERED: Terazosin 1 MG Cap PO SCH (21:00)
[2017-09-15] MEDS: oxyCODONE 5 MG Tab PO PRN ×3 (01:49→14:56)
[2017-09-15] MEDS: Ondansetron 4 MG/2 ML SDV IV PRN ×2 (06:02→18:07)
[2017-09-15] MEDS: Docusate Sodium 100 MG Cap PO PRN ×2 (08:00→20:49)
[2017-09-15] MEDS: Terazosin 1 MG Cap PO SCH (08:26)
[2017-09-15] MEDS: Potassium Chloride 10 MEQ Cap.ER PO SCH (08:27)
[2017-09-15] MEDS: Carvedilol 6.25 MG Tab PO SCH ×2 (08:27→20:43)
[2017-09-15] MEDS: Sotalol 80 MG Tab PO SCH ×3 (08:28→20:59)
[2017-09-15] MEDS: Aspirin 81 MG Tab.EC PO SCH (08:28)
[2017-09-15] MEDS: Furosemide 20 MG Tab PO SCH (08:28)
[2017-09-15] MEDS: HYDROmorphone 0.5 MG/0.5 ML Syringe IVPUSH PRN (11:08)
--- NOTE | 2017-09-15 16:54 | PCM.PN ---
- General Info Date of Service: 09/15/17 Subjective Update: Mr. Witt has been stable since admission, continues to experience significant pain related to his pelvic fracture. Vital signs have been stable and he has remained afebrile. Functional Status: Reports: Tolerating Diet, Urinating - Review of Systems General: Reports: Weakness. Denies: Fever, Chills Pulmonary: Reports: No Symptoms Cardiovascular: Reports: No Symptoms Gastrointestinal: Reports: No Symptoms Musculoskeletal: Reports: Other (Pelvic pain) - Patient Data Vitals - Most Recent: Last Vital Signs Temp 97.2 F 09/15/17 15:35 Pulse 58 L 09/15/17 15:35 Resp 18 09/15/17 15:35 BP 107/50 L 09/15/17 15:35 Pulse Ox 93 L 09/15/17 15:35 Weight - Most Recent: 130 lb I&O - Last 24 Hours: Intake & Output 09/15/17 09/15/17 09/15/17 06:59 14:59 22:59 Intake Total 887 850 Output Total 350 600 Balance 537 250 Lab Results Last 24 Hours: Laboratory Results - last 24 hr 09/14/17 Range/Units 15:57 Urine Color Yellow Urine Appearance Clear Urine pH 5.0 (4.5-8.0) Ur Specific [place] 1.015 (1.008-1.030) Urine Protein Negative (NEGATIVE) mg/dL Urine Glucose (UA) Normal (NEGATIVE) mg/dL Urine Ketones 15 H (NEGATIVE) mg/dL Urine Occult Blood Negative (NEGATIVE) Urine Nitrite Negative (NEGAITVE) Urine Bilirubin Negative (NEGATIVE) Urine Urobilinogen Normal (NORMAL) mg/dL Ur Leukocyte Esterase Negative (NEGATIVE) Urine RBC 0-5 (0-5) Urine WBC 5-10 H (0-5) Ur Epithelial Cells Rare Amorphous Sediment Few Urine Bacteria Rare Urine Mucus Few Med Orders - Current: Current Medications Acetaminophen (Tylenol) 650 mg PO Q4H PRN PRN Reason: Pain (Mild 1-3)/fever Last Admin: 09/15/17 14:55 Dose: 650 mg Aspirin (Halfprin) 81 mg PO DAILY [facility] Last Admin: 09/15/17 08:28 Dose: 81 mg Carvedilol (Coreg) 6.25 mg PO BID [facility] Last Admin: 09/15/17 08:27 Dose: 6.25 mg Docusate Sodium (Colace) 100 mg PO BID PRN PRN Reason: Constipation Last Admin: 09/15/17 08:00 Dose: 100 mg Enoxaparin Sodium (Lovenox) 40 mg SUBCUT QPM [facility] Last Admin: 09/14/17 17:21 Dose: 40 mg Furosemide (Lasix) 20 mg PO DAILY [facility] Last Admin: 09/15/17 08:28 Dose: 20 mg Hydromorphone HCl (Dilaudid) 0.25 mg IVPUSH Q2H PRN PRN Reason: Pain Last Admin: 09/15/17 11:08 Dose: 0.25 mg Magnesium Hydroxide (Milk Of Magnesia) 30 ml PO Q12H PRN PRN Reason: Constipation Ondansetron HCl (Zofran) 4 mg IV Q4H PRN PRN Reason: Nausea/Vomiting Last Admin: 09/15/17 06:02 Dose: 4 mg Oxycodone HCl (Oxycodone) 5 mg PO Q4H PRN PRN Reason: Pain (moderate 4-6) Last Admin: 09/15/17 14:56 Dose: 5 mg Oxycodone/Acetaminophen (Percocet 325-5 Mg) 2 tab PO Q4H PRN PRN Reason: Pain Polyethylene Glycol (Miralax) 17 gm PO DAILY PRN PRN Reason: Constipation Potassium Chloride (Potassium Chloride) 10 meq PO DAILY@0800 [facility] Last Admin: 09/15/17 08:27 Dose: 10 meq Sodium Chloride (Saline Flush) 10 ml FLUSH ASDIRECTED PRN PRN Reason: Keep Vein Open Sotalol HCl (Betapace) 80 mg PO BID [facility] Last Admin: 09/15/17 08:28 Dose: 80 mg Terazosin HCl (Hytrin) 2 mg PO DAILY [facility] Last Admin: 09/15/17 08:26 Dose: 2 mg Discontinued Medications Sodium Chloride (Normal Saline) 1,000 mls @ 75 mls/hr IV ASDIRECTED [facility] Last Admin: 09/15/17 01:52 Dose: 75 mls/hr Oxycodone/Acetaminophen (Percocet 325-5 Mg) 1 tab PO ONETIME ONE Stop: 09/14/17 12:47 Last Admin: 09/14/17 12:51 Dose: 1 tab Sodium Chloride (Saline Flush) 10 ml FLUSH ASDIRECTED PRN PRN Reason: Keep Vein Open Last Admin: 09/14/17 13:27 Dose: 10 ml Terazosin HCl (Hytrin) 2 mg PO BEDTIME [facility] Last Admin: 09/14/17 20:45 Dose: Not Given - Exam General: Alert, Oriented, Moderate Distress Lungs: Clear to Auscultation, Normal Respiratory Effort Cardiovascular: Regular Rate, Regular Rhythm GI/Abdominal Exam: Soft, Non-Tender, No Organomegaly, No Distention Extremities: Non-Tender, No Pedal Edema Skin: Warm, Dry - Problem List Review Problem List Initiated/Reviewed/Updated: Yes - My Orders Last 24 Hours: My Active Orders 09/14/17 15:57 Patient Status [ADT] Routine Ambulate [RC] QID Height and Weight [RC] DAILY Intake and Output [RC] QSHIFT Notify Provider Vital Signs [RC] ASDIRECTED Oxygen Therapy [RC] PRN Peripheral IV Care [RC] Q12H Up With Assistance [RC] ASDIRECTED Up to Chair [RC] QID VTE/DVT Education [RC] Per Unit Routine Vital Signs [RC] Q4H PT Evaluation and Treatment [CONS] Routine Acetaminophen [Tylenol] 650 mg PO Q4H PRN Docusate Sodium [Colace] 100 mg PO BID PRN HYDROmorphone [Dilaudid] 0.25 mg IVPUSH Q2H PRN Magnesium Hydroxide [Milk of Magnesia] 30 ml PO Q12H PRN Ondansetron [Zofran] 4 mg IV Q4H PRN Polyethylene Glycol 3350 [MiraLAX] 17 gm PO DAILY PRN Sodium Chloride 0.9% [Saline Flush] 10 ml FLUSH ASDIRECTED PRN oxyCODONE 5 mg PO Q4H PRN Peripheral IV Insertion Adult [OM.PC] Routine 09/14/17 17:00 Enoxaparin [Lovenox] 40 mg SUBCUT QPM 09/15/17 09:00 Terazosin [Hytrin] 2 mg PO DAILY 09/15/17 16:50 Acetaminophen/oxyCODONE [Percocet 325-5 MG] 2 tab PO Q4H PRN Convert IV to Saline Lock [OM.PC] Routine - Plan Plan:: ASSESSMENT AND PLAN RIGHT SUPERIOR AND INFERIOR PUBIC RAMI ongoing pain as would be expected -Saline lock IV -Oxycodone and/or IV Dilaudid as needed for pain -Physical therapy consult -Weightbearing as tolerated -Will likely need to pursue half-way placement until he is able to ambulate independently CORONARY ARTERY DISEASE-status post previous coronary artery bypass surgery, currently asymptomatic -Continue outpatient medical regimen CONGESTIVE HEART FAILURE-well compensated on current medical therapy -Continue outpatient medical regimen MAINTENANCE ISSUES -DVT prophylaxis; Lovenox 40 mg subcutaneous daily -GI prophylaxis; not indicated -Trivedi catheter; not indicated -Nutrition; regular diet -Nicotine dependence; not required CODE STATUS-FULL CODE ADMISSION STATUS-patient will be admitted to inpatient status, expect at least a 2 night hospital stay for evaluation and management of problems as outlined above. At the time of this admission I do not reasonably expected evaluation and management of this problem will require more than a 96 hour hospital stay. DISPOSITION-anticipate discharge to home after the hospital stay. PRIMARY CARE PROVIDER-Dr. Saldivar
[2017-09-15] MEDS: Enoxaparin 40 MG/0.4 ML Syringe SUBCUT SCH (17:12)
[2017-09-15] MEDS: Acetaminophen/oxyCODONE 325-5 MG Tab PO PRN (19:28)
[2017-09-15] MEDS: Sodium Chloride 0.9% 1,000 ML IV SCH (21:01)
--- NOTE | 2017-09-15 22:28 | PCM.SN ---
- Free Text/Narrative Note: time; 20:40 call from [address] [place] [address]; blood pressure low with decreased urine output. patient denies any chest pain, shortness of breath o: P64 RR 16 B\P 98/70 O2 sat 92% a; hypotension p; order IV fluids, NS @75ml/hr. continue present plan of care.
[2017-09-16] MEDS: Acetaminophen/oxyCODONE 325-5 MG Tab PO PRN ×4 (01:13→21:09)
[2017-09-16] MEDS: Ondansetron 4 MG/2 ML SDV IV PRN (07:53)
[2017-09-16] MEDS: Potassium Chloride 10 MEQ Cap.ER PO SCH (08:46)
[2017-09-16] MEDS: Aspirin 81 MG Tab.EC PO SCH (08:46)
[2017-09-16] MEDS: Docusate Sodium 100 MG Cap PO PRN (08:48)
[2017-09-16] MEDS: Carvedilol 6.25 MG Tab PO SCH (08:53)
[2017-09-16] MEDS: Furosemide 20 MG Tab PO SCH (08:53)
[2017-09-16] MEDS: Sotalol 80 MG Tab PO SCH ×2 (08:56→21:04)
[2017-09-16] MEDS: Terazosin 1 MG Cap PO SCH (08:57)
[2017-09-16] MEDS: Sodium Chloride 0.9% 1,000 ML IV SCH (08:58)
--- NOTE | 2017-09-16 10:14 | PCM.PN ---
- General Info Date of Service: 09/16/17 Subjective Update: Mr. Witt has continued to experience symptoms of nausea in the morning, although not he's been feeling relatively well and his pain has been fairly well controlled. Blood pressures have trended to run somewhat low, furosemide and Hytrin have been held this morning. Pain control thus far has been fairly good. - Review of Systems General: Denies: Fever, Weakness, Chills Pulmonary: Reports: No Symptoms Cardiovascular: Reports: No Symptoms Gastrointestinal: Reports: No Symptoms Musculoskeletal: Reports: Other (Pelvic pain) - Patient Data Vitals - Most Recent: Last Vital Signs Temp 97.1 F 09/16/17 07:38 Pulse 59 L 09/16/17 08:56 Resp 16 09/16/17 07:38 BP 98/54 L 09/16/17 08:57 Pulse Ox 95 09/16/17 07:38 Weight - Most Recent: 130 lb I&O - Last 24 Hours: Intake & Output 09/15/17 09/16/17 09/16/17 22:59 06:59 14:59 Intake Total 1173 629 Output Total 100 200 45 Balance 1073 429 -45 Med Orders - Current: Current Medications Acetaminophen (Tylenol) 650 mg PO Q4H PRN PRN Reason: Pain (Mild 1-3)/fever Last Admin: 09/15/17 14:55 Dose: 650 mg Aspirin (Halfprin) 81 mg PO DAILY [facility] Last Admin: 09/16/17 08:46 Dose: 81 mg Docusate Sodium (Colace) 100 mg PO BID PRN PRN Reason: Constipation Last Admin: 09/16/17 08:48 Dose: 100 mg Enoxaparin Sodium (Lovenox) 40 mg SUBCUT QPM [facility] Last Admin: 09/15/17 17:12 Dose: 40 mg Hydromorphone HCl (Dilaudid) 0.25 mg IVPUSH Q2H PRN PRN Reason: Pain Last Admin: 09/15/17 11:08 Dose: 0.25 mg Magnesium Hydroxide (Milk Of Magnesia) 30 ml PO Q12H PRN PRN Reason: Constipation Last Admin: 09/16/17 08:47 Dose: 30 ml Ondansetron HCl (Zofran) 4 mg IV Q4H PRN PRN Reason: Nausea/Vomiting Last Admin: 09/16/17 07:53 Dose: 4 mg Oxycodone HCl (Oxycodone) 5 mg PO Q4H PRN PRN Reason: Pain (moderate 4-6) Last Admin: 09/15/17 14:56 Dose: 5 mg Oxycodone/Acetaminophen (Percocet 325-5 Mg) 2 tab PO Q4H PRN PRN Reason: Pain Last Admin: 09/16/17 05:22 Dose: 2 tab Polyethylene Glycol (Miralax) 17 gm PO DAILY PRN PRN Reason: Constipation Potassium Chloride (Potassium Chloride) 10 meq PO DAILY@0800 [facility] Last Admin: 09/16/17 08:46 Dose: 10 meq Sodium Chloride (Saline Flush) 10 ml FLUSH ASDIRECTED PRN PRN Reason: Keep Vein Open Sotalol HCl (Betapace) 80 mg PO BID [facility] Last Admin: 09/16/17 08:56 Dose: 80 mg Terazosin HCl (Hytrin) 2 mg PO DAILY [facility] Last Admin: 09/16/17 08:57 Dose: 2 mg Discontinued Medications Carvedilol (Coreg) 6.25 mg PO BID [facility] Last Admin: 09/16/17 08:53 Dose: Not Given Furosemide (Lasix) 20 mg PO DAILY [facility] Last Admin: 09/16/17 08:53 Dose: Not Given Sodium Chloride (Normal Saline) 1,000 mls @ 75 mls/hr IV ASDIRECTED [facility] Last Admin: 09/15/17 01:52 Dose: 75 mls/hr Sodium Chloride (Normal Saline) 1,000 mls @ 75 mls/hr IV ASDIRECTED [facility] Last Admin: 09/16/17 08:58 Dose: 75 mls/hr Oxycodone/Acetaminophen (Percocet 325-5 Mg) 1 tab PO ONETIME ONE Stop: 09/14/17 12:47 Last Admin: 09/14/17 12:51 Dose: 1 tab Sodium Chloride (Saline Flush) 10 ml FLUSH ASDIRECTED PRN PRN Reason: Keep Vein Open Last Admin: 09/14/17 13:27 Dose: 10 ml Terazosin HCl (Hytrin) 2 mg PO BEDTIME [facility] Last Admin: 09/14/17 20:45 Dose: Not Given - Exam Quality Assessment: DVT Prophylaxis General: Alert, Oriented, Cooperative, Mild Distress Lungs: Clear to Auscultation, Normal Respiratory Effort Cardiovascular: Regular Rate, Regular Rhythm, Murmurs GI/Abdominal Exam: Soft, Non-Tender, No Organomegaly, No Distention Extremities: Non-Tender, No Pedal Edema Skin: Warm, Dry - Problem List Review Problem List Initiated/Reviewed/Updated: Yes - My Orders Last 24 Hours: My Active Orders 09/15/17 16:50 Acetaminophen/oxyCODONE [Percocet 325-5 MG] 2 tab PO Q4H PRN Convert IV to Saline Lock [OM.PC] Routine 09/16/17 10:11 Convert IV to Saline Lock [OM.PC] Routine - Plan Plan:: ASSESSMENT AND PLAN RIGHT SUPERIOR AND INFERIOR PUBIC RAMI-pain seems to be better controlled over the past 24 hours, continues to experience some difficulty with -Saline lock IV -Oxycodone and/or IV Dilaudid as needed for pain -Physical therapy consult -Weightbearing as tolerated -Will likely need to pursue [facility] placement until he is able to ambulate independently CORONARY ARTERY DISEASE-status post previous coronary artery bypass surgery, currently asymptomatic -Continue outpatient medical regimen CONGESTIVE HEART FAILURE-well compensated on current medical therapy -Continue outpatient medical regimen MAINTENANCE ISSUES -DVT prophylaxis; Lovenox 40 mg subcutaneous daily -GI prophylaxis; not indicated -Trivedi catheter; not indicated -Nutrition; regular diet -Nicotine dependence; not required CODE STATUS-FULL CODE ADMISSION STATUS-patient will be admitted to inpatient status, expect at least a 2 night hospital stay for evaluation and management of problems as outlined above. At the time of this admission I do not reasonably expected evaluation and management of this problem will require more than a 96 hour hospital stay. DISPOSITION-anticipate discharge to [facility] on Monday PRIMARY CARE PROVIDER-Dr. Saldivar
[2017-09-16] MEDS: Enoxaparin 40 MG/0.4 ML Syringe SUBCUT SCH (16:47)
[2017-09-17] MEDS: Acetaminophen/oxyCODONE 325-5 MG Tab PO PRN ×3 (02:59→23:14)
[2017-09-17] MEDS: Potassium Chloride 10 MEQ Cap.ER PO SCH (09:21)
[2017-09-17] MEDS: Aspirin 81 MG Tab.EC PO SCH (09:21)
[2017-09-17] MEDS: Sotalol 80 MG Tab PO SCH ×2 (09:22→20:28)
[2017-09-17] MEDS: Terazosin 1 MG Cap PO SCH (09:22)
[2017-09-17] MEDS ORDERED: Sodium Phosphate,Monobasic/Sodium Phosphate,Dibasic Enema 133 ML Bottle RECTAL ONE (10:36)
[2017-09-17] MEDS ORDERED: Bisacodyl 10 MG Supp RECTAL ONE (10:45)
--- NOTE | 2017-09-17 15:22 | PCM.PN ---
- General Info Date of Service: 09/17/17 Subjective Update: Mr. Witt has remained stable since yesterday, pain control has been adequate with current regimen. He is experienced no further symptoms of nausea, but has not had had a bowel movement. Functional Status: Reports: Pain Controlled, Tolerating Diet - Review of Systems General: Denies: Fever, Chills Pulmonary: Reports: No Symptoms Cardiovascular: Reports: No Symptoms Gastrointestinal: Reports: No Symptoms Musculoskeletal: Reports: Other (Pelvic pain) - Patient Data Vitals - Most Recent: Last Vital Signs Temp 98 F 09/17/17 10:49 Pulse 60 09/17/17 10:49 Resp 16 09/17/17 10:49 BP 119/52 L 09/17/17 10:49 Pulse Ox 95 09/17/17 10:49 Weight - Most Recent: 136 lb 3.931 oz I&O - Last 24 Hours: Intake & Output 09/17/17 09/17/17 09/17/17 06:59 14:59 22:59 Intake Total 840 Output Total 280 200 Balance -280 640 Med Orders - Current: Current Medications Acetaminophen (Tylenol) 650 mg PO Q4H PRN PRN Reason: Pain (Mild 1-3)/fever Last Admin: 09/15/17 14:55 Dose: 650 mg Aspirin (Halfprin) 81 mg PO DAILY [facility] Last Admin: 09/17/17 09:21 Dose: 81 mg Docusate Sodium (Colace) 100 mg PO BID PRN PRN Reason: Constipation Last Admin: 09/16/17 08:48 Dose: 100 mg Enoxaparin Sodium (Lovenox) 40 mg SUBCUT QPM [facility] Last Admin: 09/16/17 16:47 Dose: 40 mg Hydromorphone HCl (Dilaudid) 0.25 mg IVPUSH Q2H PRN PRN Reason: Pain Last Admin: 09/15/17 11:08 Dose: 0.25 mg Magnesium Hydroxide (Milk Of Magnesia) 30 ml PO Q12H PRN PRN Reason: Constipation Last Admin: 09/16/17 08:47 Dose: 30 ml Ondansetron HCl (Zofran) 4 mg IV Q4H PRN PRN Reason: Nausea/Vomiting Last Admin: 09/16/17 07:53 Dose: 4 mg Oxycodone HCl (Oxycodone) 5 mg PO Q4H PRN PRN Reason: Pain (moderate 4-6) Last Admin: 09/15/17 14:56 Dose: 5 mg Oxycodone/Acetaminophen (Percocet 325-5 Mg) 2 tab PO Q4H PRN PRN Reason: Pain Last Admin: 09/17/17 13:30 Dose: 2 tab Polyethylene Glycol (Miralax) 17 gm PO DAILY PRN PRN Reason: Constipation Last Admin: 09/16/17 14:44 Dose: 17 gm Potassium Chloride (Potassium Chloride) 10 meq PO DAILY@0800 [facility] Last Admin: 09/17/17 09:21 Dose: 10 meq Sodium Chloride (Saline Flush) 10 ml FLUSH ASDIRECTED PRN PRN Reason: Keep Vein Open Sotalol HCl (Betapace) 80 mg PO BID [facility] Last Admin: 09/17/17 09:22 Dose: 80 mg Terazosin HCl (Hytrin) 2 mg PO DAILY [facility] Last Admin: 09/17/17 09:22 Dose: 2 mg Discontinued Medications Bisacodyl (Dulcolax) 10 mg RECTAL ONETIME ONE Stop: 09/17/17 10:46 Last Admin: 09/17/17 10:53 Dose: 10 mg Carvedilol (Coreg) 6.25 mg PO BID [facility] Last Admin: 09/16/17 08:53 Dose: Not Given Furosemide (Lasix) 20 mg PO DAILY [facility] Last Admin: 09/16/17 08:53 Dose: Not Given Sodium Chloride (Normal Saline) 1,000 mls @ 75 mls/hr IV ASDIRECTED [facility] Last Admin: 09/15/17 01:52 Dose: 75 mls/hr Sodium Chloride (Normal Saline) 1,000 mls @ 75 mls/hr IV ASDIRECTED [facility] Last Admin: 09/16/17 08:58 Dose: 75 mls/hr Oxycodone/Acetaminophen (Percocet 325-5 Mg) 1 tab PO ONETIME ONE Stop: 09/14/17 12:47 Last Admin: 09/14/17 12:51 Dose: 1 tab Sodium Biphosphate/Sodium Phosphate (Fleet Enema) 133 ml RECTAL ONETIME ONE Stop: 09/17/17 10:37 Last Admin: 09/17/17 12:28 Dose: Not Given Sodium Chloride (Saline Flush) 10 ml FLUSH ASDIRECTED PRN PRN Reason: Keep Vein Open Last Admin: 09/14/17 13:27 Dose: 10 ml Terazosin HCl (Hytrin) 2 mg PO BEDTIME [facility] Last Admin: 09/14/17 20:45 Dose: Not Given - Exam Quality Assessment: DVT Prophylaxis General: Alert, Oriented, Cooperative, Mild Distress Lungs: Clear to Auscultation, Normal Respiratory Effort Cardiovascular: Regular Rate, Regular Rhythm, No Murmurs GI/Abdominal Exam: Soft, Non-Tender, No Organomegaly, No Distention Extremities: Non-Tender, No Pedal Edema Skin: Warm, Dry - Problem List Review Problem List Initiated/Reviewed/Updated: Yes - Plan Plan:: ASSESSMENT AND PLAN RIGHT SUPERIOR AND INFERIOR PUBIC RAMI-pain seems to be better controlled over the past 24 hours, continues to experience some difficulty with -Saline lock IV -Oxycodone as needed for pain -Physical therapy consult -Weightbearing as tolerated -Will likely need to pursue [place] [facility] placement until he is able to ambulate independently CORONARY ARTERY DISEASE-status post previous coronary artery bypass surgery, currently asymptomatic -Continue outpatient medical regimen CONGESTIVE HEART FAILURE-well compensated on current medical therapy -Continue outpatient medical regimen MAINTENANCE ISSUES -DVT prophylaxis; Lovenox 40 mg subcutaneous daily -GI prophylaxis; not indicated -Trivedi catheter; not indicated -Nutrition; regular diet -Nicotine dependence; not required CODE STATUS-FULL CODE ADMISSION STATUS-patient will be admitted to inpatient status, expect at least a 2 night hospital stay for evaluation and management of problems as outlined above. At the time of this admission I do not reasonably expected evaluation and management of this problem will require more than a 96 hour hospital stay. DISPOSITION-anticipate discharge to [place] [facility] tomorrow PRIMARY CARE PROVIDER-Dr. Saldivar
--- NOTE | 2017-09-17 15:36 | PCM.DCSUM1 ---
Discharge Summary - Hospital Course Brief History: Mr. Witt is an 87-year-old gentleman who was admitted through the emergency room after experiencing significant pelvic pain following a fall at home. On evaluation was found to have fractures of the superior and inferior rami on the right. - Discharge Data Discharge Date: 09/18/17 Discharge Disposition: DC/Tfer to SNF 03 Condition: Fair - Discharge Diagnosis/Problem(s) (1) Pelvis fracture, right SNOMED Code(s): 97977680 ICD Code: S32.9XXA - FRACTURE OF UNSP PARTS OF LUMBOSACRAL SPINE AND PELVIS, INIT Status: Acute Current Visit: Yes Qualifiers: Encounter type: initial encounter Pelvic bone location: pubis Sublocation of pubis: unspecified portion of pubis Fracture type: closed Qualified Code(s): S32.501A - Unspecified fracture of right pubis, initial encounter for closed fracture (2) Cardiomyopathy SNOMED Code(s): 48660780 ICD Code: I42.9 - CARDIOMYOPATHY, UNSPECIFIED Status: Chronic Current Visit: No (3) Coronary artery disease involving marshall coronary artery of marshall heart SNOMED Code(s): 9242987057183 ICD Code: I25.10 - ATHSCL HEART DISEASE OF [place] CORONARY ARTERY W/O ANG PCTRS Status: Chronic Current Visit: No - Patient Summary/Data Consults: Consultations 09/14/17 15:57 PT Evaluation and Treatment [CONS] Routine Please Evaluate and Treat. PT Reason for Consult: pelvic fracture, wt bearing as tolerated This query below is only for informational purposes and is not editable. Hospital Course: Mr. Witt is an 87-year-old gentleman admitted following at home and noted acute onset of pain in his pelvis following the fall. He was brought into the emergency department for further evaluation, x-ray of the right hip showed no evidence of fracture. X-ray of the pelvis showed evidence of fractures of both the inferior and superior pubic rami. He was admitted to the hospital and given cautious IV fluids for hydration as well as pain medication. He was seen by physical therapy on the day after admission and daily thereafter. He has a known history of coronary artery disease as well as congestive heart failure but had no exacerbation or cardiac symptoms during the hospitalization. He remained in the hospital until a [facility] bed became available and will be discharged there for restorative physical therapy and occupational therapy. Activity will be as tolerated with weightbearing as tolerated, he will remain on a cardiac diet. Follow-up appointment will be scheduled with orthopedic surgery in 2 weeks. - Patient Instructions Diet: Heart Healthy Diet Activity: As Tolerated, Full Weight Bearing (As tolerated) Other/Special Instructions: Daily physical therapy and occupational therapy while at the [facility]. Weightbearing as tolerated. Please schedule appointment with orthopedic surgery in 2 weeks. - Discharge Plan Prescriptions/Med Rec: oxyCODONE 5 mg PO Q4H PRN #20 tablet PRN Reason: Pain (Moderate 4-6) Polyethylene Glycol 3350 [MiraLAX] 17 gm PO BID PRN #60 packet PRN Reason: Constipation Home Medications: Home Meds Aspirin [Barren Aspirin] 81 mg PO DAILY 03/12/15 [History] Carvedilol 6.25 mg PO BID 03/12/15 [History] Furosemide 20 mg PO DAILY 03/12/15 [History] Potassium Chloride 10 meq PO DAILY 03/12/15 [History] Sotalol HCl [Sotalol] 80 mg PO BID 11/23/16 [History] Aloe Vera 25 mg PO DAILY 06/13/17 [History] Lutein-Bilberry 1 cap PO DAILY 06/13/17 [History] Terazosin HCl [Terazosin] 2 mg PO BEDTIME 06/13/17 [History] Polyethylene Glycol 3350 [MiraLAX] 17 gm PO BID PRN #60 packet 09/17/17 [Rx] oxyCODONE 5 mg PO Q4H PRN #20 tablet 09/17/17 [Rx] Referrals: Sowmya Menjivar MD [Primary Care Provider] - - Patient Data Vitals - Most Recent: Last Vital Signs Temp 98 F 09/17/17 10:49 Pulse 60 09/17/17 10:49 Resp 16 09/17/17 10:49 BP 119/52 L 09/17/17 10:49 Pulse Ox 95 09/17/17 10:49 Weight - Most Recent: 136 lb 3.931 oz I&O - Last 24 hours: Intake & Output 09/17/17 09/17/17 09/17/17 06:59 14:59 22:59 Intake Total 840 Output Total 280 200 Balance -280 640 Med Orders - Current: Current Medications Acetaminophen (Tylenol) 650 mg PO Q4H PRN PRN Reason: Pain (Mild 1-3)/fever Last Admin: 09/15/17 14:55 Dose: 650 mg Aspirin (Halfprin) 81 mg PO DAILY [facility]PL[facility] Last Admin: 09/17/17 09:21 Dose: 81 mg Docusate Sodium (Colace) 100 mg PO BID PRN PRN Reason: Constipation Last Admin: 09/16/17 08:48 Dose: 100 mg Enoxaparin Sodium (Lovenox) 40 mg SUBCUT QPM [facility]PL[facility]ED [facility] Last Admin: 09/16/17 16:47 Dose: 40 mg Hydromorphone HCl (Dilaudid) 0.25 mg IVPUSH Q2H PRN PRN Reason: Pain Last Admin: 09/15/17 11:08 Dose: 0.25 mg Magnesium Hydroxide (Milk Of Magnesia) 30 ml PO Q12H PRN PRN Reason: Constipation Last Admin: 09/16/17 08:47 Dose: 30 ml Ondansetron HCl (Zofran) 4 mg IV Q4H PRN PRN Reason: Nausea/Vomiting Last Admin: 09/16/17 07:53 Dose: 4 mg Oxycodone HCl (Oxycodone) 5 mg PO Q4H PRN PRN Reason: Pain (moderate 4-6) Last Admin: 09/15/17 14:56 Dose: 5 mg Oxycodone/Acetaminophen (Percocet 325-5 Mg) 2 tab PO Q4H PRN PRN Reason: Pain Last Admin: 09/17/17 13:30 Dose: 2 tab Polyethylene Glycol (Miralax) 17 gm PO DAILY PRN PRN Reason: Constipation Last Admin: 09/16/17 14:44 Dose: 17 gm Potassium Chloride (Potassium Chloride) 10 meq PO DAILY@0800 [facility]PL[facility]ED [facility] Last Admin: 09/17/17 09:21 Dose: 10 meq Sodium Chloride (Saline Flush) 10 ml FLUSH ASDIRECTED PRN PRN Reason: Keep Vein Open Sotalol HCl (Betapace) 80 mg PO BID [facility]PL[facility] Last Admin: 09/17/17 09:22 Dose: 80 mg Terazosin HCl (Hytrin) 2 mg PO DAILY [facility] Last Admin: 09/17/17 09:22 Dose: 2 mg Discontinued Medications Bisacodyl (Dulcolax) 10 mg RECTAL ONETIME ONE Stop: 09/17/17 10:46 Last Admin: 09/17/17 10:53 Dose: 10 mg Carvedilol (Coreg) 6.25 mg PO BID [facility] Last Admin: 09/16/17 08:53 Dose: Not Given Furosemide (Lasix) 20 mg PO DAILY [facility] Last Admin: 09/16/17 08:53 Dose: Not Given Sodium Chloride (Normal Saline) 1,000 mls @ 75 mls/hr IV ASDIRECTED REPLACED BY [facility] Last Admin: 09/15/17 01:52 Dose: 75 mls/hr Sodium Chloride (Normal Saline) 1,000 mls @ 75 mls/hr IV ASDIRECTED REPLACED BY [facility] Last Admin: 09/16/17 08:58 Dose: 75 mls/hr Oxycodone/Acetaminophen (Percocet 325-5 Mg) 1 tab PO ONETIME ONE Stop: 09/14/17 12:47 Last Admin: 09/14/17 12:51 Dose: 1 tab Sodium Biphosphate/Sodium Phosphate (Fleet Enema) 133 ml RECTAL ONETIME ONE Stop: 09/17/17 10:37 Last Admin: 09/17/17 12:28 Dose: Not Given Sodium Chloride (Saline Flush) 10 ml FLUSH ASDIRECTED PRN PRN Reason: Keep Vein Open Last Admin: 09/14/17 13:27 Dose: 10 ml Terazosin HCl (Hytrin) 2 mg PO BEDTIME [facility]PL[facility] Last Admin: 09/14/17 20:45 Dose: Not Given *Q Meaningful Use (DIS) - VTE *Q VTE Criteria *Q: - Stroke *Q Stroke Criteria *Q: - AMI *Q AMI Criteria *Q:
[2017-09-17] MEDS: Enoxaparin 40 MG/0.4 ML Syringe SUBCUT SCH (16:10)
[2017-09-18] MEDS: Potassium Chloride 10 MEQ Cap.ER PO SCH (09:03)
[2017-09-18] MEDS: Terazosin 1 MG Cap PO SCH (09:03)
[2017-09-18] MEDS: Aspirin 81 MG Tab.EC PO SCH (09:06)
[2017-09-18] MEDS: Acetaminophen/oxyCODONE 325-5 MG Tab PO PRN ×2 (09:06→13:32)
[2017-09-18] MEDS: Sotalol 80 MG Tab PO SCH (09:07)
[2017-09-18 13:33] VITALS: BP 110/52
== END 2017-09-18 15:55 | DRG 536 ==
LOC: JP.ED 12:00 → JP.MS 14:22
PROVIDERS: ADMIT Hospitalist; ATTEND Internal Medicine
DX: S32.591A Other specified fracture of right pubis, initial encounter for closed fracture (principal); W01.0XXA Fall on same level from slipping, tripping and stumbling without subsequent striking against object, initial encounter; Y92.007 Garden or yard of unspecified non-institutional (private) residence as the place of occurrence of the external cause; I25.10 Atherosclerotic heart disease of native coronary artery without angina pectoris; I50.9 Heart failure, unspecified; M25.551 Pain in right hip; M19.90 Unspecified osteoarthritis, unspecified site; N40.0 Benign prostatic hyperplasia without lower urinary tract symptoms; I25.2 Old myocardial infarction; Z95.1 Presence of aortocoronary bypass graft; Z95.0 Presence of cardiac pacemaker; H91.90 Unspecified hearing loss, unspecified ear; H54.7 Unspecified visual loss; Z79.82 Long term (current) use of aspirin; Z85.038 Personal history of other malignant neoplasm of large intestine; I95.9 Hypotension, unspecified; Z95.818 Presence of other cardiac implants and grafts
CPT/HCPCS: 72170 ×2; 73502 ×2; 99285; A9270; J7050; 36415; 80053; 81001; 85025; 97110-GP; 97161-GP; 97530-GP; 99284; J1170; J1650; J2405; J7040

== ENCOUNTER → 2018-06-25 | Day surgery (SDC) | payer MEDICARE, SELFPAY ==
[~2018-06-25] MED LIST: Propofol 200 MG/20 ML SDV ONE; fentaNYL 100 MCG/2 ML SDV ONE
[2018-06-25] MEDS: Lidocaine 1% with EPINEPHrine 1:100,000 50 ML MDV ONE (09:25)
[2018-06-25] MEDS: Bupivacaine 0.5% 50 ML MDV ONE (09:33)
[2018-06-25] MEDS: Bacitracin Oint 1 GM U/D Packet ONE ×2 (09:59→10:09)
[2018-06-25] MEDS: Lactated Ringers 1,000 ML IV SCH (10:43)
[2018-06-25 11:18] VITALS: BP 132/58
== END ==
LOC: JP.SDS 07:39
PROVIDERS: ATTEND Otolaryngology
DX: C44.212 Basal cell carcinoma of skin of right ear and external auricular canal (principal); C18.7 Malignant neoplasm of sigmoid colon; I25.10 Atherosclerotic heart disease of native coronary artery without angina pectoris; I25.5 Ischemic cardiomyopathy; I25.2 Old myocardial infarction; I08.0 Rheumatic disorders of both mitral and aortic valves; Z95.810 Presence of automatic (implantable) cardiac defibrillator; Z79.899 Other long term (current) drug therapy
CPT/HCPCS: 14060; 88305; 88341; 88342; J2704; J3010; J3490; J7120

== ENCOUNTER 2019-09-06 09:56 | Emergency (ER) | payer MEDICARE ==
[2019-09-06 10:23] VITALS: BP 124/70; PULSE 70
--- NOTE | 2019-09-06 10:56 | EDM.PDOC ---
ED HPI GENERAL MEDICAL PROBLEM - General Chief Complaint: General Stated Complaint: SENT FROM CLINIC, ISSUES WALKING Time Seen by Provider: 09/06/19 10:30 Source of Information: Reports: Patient, Family, Provider History Limitations: Reports: No Limitations - History of Present Illness INITIAL COMMENTS - FREE TEXT/NARRATIVE: 89-year-old male with dilated cardiomyopathy, history of coronary disease with an internal defibrillator and pacemaker presented to the clinic this morning with weakness and palpitations. His initial workup in the clinic was good, his labs were reassuring, vitals were stable and EKG showed a paced rhythm. There was concern about his weakness however and a troponin apparently can't be drawn at the clinic so he was sent to the emergency room. On arrival he admits weakness but otherwise feels fine. He did go out and feed the birds this morning but felt he didn't have enough strength to get firewood. He would like to be checked for Lyme's disease. He's had no fevers or chills, he has had some morning nausea for the past 2 weeks. Onset: Unknown/Unsure Associated Symptoms: Reports: Weakness, Other (Morning nausea but no vomiting). Denies: Confusion, Chest Pain, Cough, Diaphoresis denies Pain Score (Numeric/FACES): 0 - Related Data Allergies Allergy/AdvReac Type Severity Reaction Status Date / Time No Known Allergies Allergy Verified 09/06/19 10:09 Home Meds: Home Meds Aspirin [Runnels Aspirin EC] 81 mg PO DAILY 03/12/15 [History] Furosemide 20 mg PO DAILY 03/12/15 [History] carvediloL [Carvedilol] 6.25 mg PO BID 03/12/15 [History] Sotalol HCl [Sotalol] 80 mg PO BID 11/23/16 [History] Aloe Vera 1 cap PO DAILY 06/13/17 [History] Lutein-Bilberry 1 cap PO DAILY 06/13/17 [History] Ketoconazole [Nizoral 2% Shampoo] 1 applic .XX DAILY 06/22/18 [History] Potassium Citrate [Potassium Citrate ER] 10 meq PO DAILY 06/22/18 [History] Spironolactone [Aldactone] 25 mg PO DAILY 06/22/18 [History] Past Medical History HEENT History: Reports: Hard of Hearing, Impaired Vision Cardiovascular History: Reports: Arrhythmia, Automatic Implantable Cardioverter Defibrillators, Bypass, CAD, PR, Pacemaker, SOB on Exertion Respiratory History: Reports: SOB Gastrointestinal History: Reports: Colon Polyp, Hemorrhoids, Other (See Below) Other Gastrointestinal History: rectal bleeding, colon tumor Genitourinary History: Reports: BPH, Renal Calculus Musculoskeletal History: Reports: Arthritis, Osteoarthritis Neurological History: Reports: None Psychiatric History: Reports: None Endocrine/Metabolic History: Reports: None Hematologic History: Reports: Anemia, Blood Transfusion(s) Immunologic History: Reports: None Oncologic (Cancer) History: Reports: Colon Dermatologic History: Reports: None - Infectious Disease History Infectious Disease History: Reports: Chicken Pox - Past Surgical History HEENT Surgical History: Reports: Tonsillectomy Cardiovascular Surgical History: Reports: AICD, Coronary Artery Bypass, Other ( See Below) Other Cardiovascular Surgeries/Procedures: pacemaker replaced 08/24/17 GI Surgical History: Reports: Colon, Colonoscopy, Small Bowel Male Surgical History: Reports: TURP-Transurethral Resection of Prostate Musculoskeletal Surgical History: Reports: Arthroscopic Knee Social & Family History - Family History Family Medical History: Noncontributory - Tobacco Use Smoking Status *Q: Never Smoker Second Hand Smoke Exposure: No - Caffeine Use Caffeine Use: Reports: Coffee - Recreational Drug Use Recreational Drug Use: No ED ROS GENERAL - Review of Systems Review Of Systems: See Below Constitutional: Denies: Fever, Chills, Decreased Appetite HEENT: Reports: No Symptoms Respiratory: Denies: Shortness of Breath Cardiovascular: Reports: Palpitations Endocrine: Reports: Fatigue GI/Abdominal: Reports: Nausea. Denies: Abdominal Pain, Vomiting Skin: Reports: No Symptoms Neurological: Reports: Weakness. Denies: Headache Psychiatric: Reports: No Symptoms ED EXAM, GENERAL - Physical Exam Exam: See Below Exam Limited By: No Limitations General Appearance: Alert, No Apparent Distress Eye Exam: Bilateral Eye: EOMI Respiratory/Chest: No Respiratory Distress, Lungs Clear Cardiovascular: Regular Rate, Rhythm, Extra Beats (Occasional ectopic beat) GI/Abdominal: Soft, Non-Tender. No: Distended Extremities: Other (Just a trace of ankle edema bilaterally) Neurological: Alert, Oriented Course - Vital Signs Last Recorded V/S: Last Vital Signs Temp 97.2 F 09/06/19 10:23 Pulse 70 09/06/19 10:23 Resp 11 L 09/06/19 10:23 BP 124/70 09/06/19 10:23 Pulse Ox 96 09/06/19 10:23 - Orders/Labs/Meds Orders: Active Orders 24 hr Category Date Time Status [facility] Urgent Lab 09/06/19 10:51 Received LYME, TOTAL AB TEST/REFLEX Urgent Lab 09/06/19 10:51 Received Labs: Laboratory Tests 09/06/19 Range/Units 10:51 Troponin I 0.045 (0.000-0.056) ng/mL - Re-Assessments/Exams Free Text/Narrative Re-Assessment/Exam: 09/06/19 10:55 Blood was drawn for a troponin as well as lyme's and ehrlichiosis titers. 09/06/19 11:16 Troponin is within normal limits. We will contact the patient with the rest of the labs next week when available, and he would like to try to go home and increase activity as tolerated. He can return if worsening. Departure - Departure Time of Disposition: 11:50 Disposition: Home, Self-Care 01 Clinical Impression: Weakness, Palpitations - Discharge Information Instructions: Weakness, [id number] Referrals: PCP,None [Primary Care Provider] - Forms: ED Department Discharge Care Plan Goals: Continue your current medications and increase activity as tolerated. Recheck next week if not improving or return sooner if worsening or concerns. He will be contacted with test results if positive. - My Orders Last 24 Hours: My Active Orders 09/06/19 10:51 [facility] Urgent LYME, TOTAL AB TEST/REFLEX Urgent - Assessment/Plan Last 24 Hours: My Active Orders 09/06/19 10:51 [facility] Urgent LYME, TOTAL AB TEST/REFLEX Urgent
[2019-09-09 13:08] LABS: HGE IGG TITER Negative (Neg:<1:64); HGE IGM TITER Negative (Neg:<1:20)
[2019-09-11 22:07] LABS: IGG P18 AB. Present (.); IGG P23 AB. Absent (.); IGG P28 AB. Absent (.); IGG P30 AB. Absent (.); IGG P39 AB. Present (.); IGG P41 AB. Present (.); IGG P45 AB. Absent (.); IGG P58 AB. Present (.); IGG P66 AB. Absent (.); IGG P93 AB. Absent (.); IGM P23 AB. Absent (.); IGM P39 AB. Present (.); IGM P41 AB. Absent (.); LYME IGG WB INTERP. Negative (.); LYME IGG/IGM AB 1.41 ISR (0.00-0.90); LYME IGM WB INTERP. Negative (.)
== END 2019-09-06 11:50 | disposition home or self-care (01) ==
LOC: JP.ED 09:56
DX: R53.1 Weakness (principal); R00.2 Palpitations; I25.10 Atherosclerotic heart disease of native coronary artery without angina pectoris; I25.2 Old myocardial infarction; Z79.82 Long term (current) use of aspirin; Z79.899 Other long term (current) drug therapy; Z95.0 Presence of cardiac pacemaker
CPT/HCPCS: 36415; 84484; 86617-59; 86618; 86666; 99283; 99284

== ENCOUNTER 2019-11-27 18:05 | Emergency (ER) | payer MEDICARE ==
[2019-11-27] MEDS ORDERED: Furosemide 40 MG Tab PO ONE (19:21)
--- NOTE | 2019-11-27 19:29 | EDM.PDOC ---
ED HPI GENERAL MEDICAL PROBLEM - General Chief Complaint: Cardiovascular Problem Stated Complaint: SOB,HEART TROUBLE Time Seen by Provider: 11/27/19 18:50 Source of Information: Reports: Patient, Family History Limitations: Reports: No Limitations - History of Present Illness INITIAL COMMENTS - FREE TEXT/NARRATIVE: This is an 89-year-old with history of combined diastolic and systolic CHF, pacemaker placement, severe mitral regurgitation, ischemic heart disease who presents with concerns of dyspnea. Increasing shortness of breath has been somewhat insidious in onset, may have been up to weeks. He now has become short of breath with simple tasks like walking to the bathroom in his home. He generally sleeps on the couch, is tired during the day, but denies PND or orthopnea. He's had no fevers or chills. He has no chest pain. He does notice nausea with exertion.No vomiting. Has noticed some increased lower extremity swelling. He did receive a letter from his audio engineer today with the results of a recent echocardiogram, this showed severe mitral regurgitation, his believes he is more cognizant of his breathing because of this and therefore presents to the ED tonight. denies Pain Score (Numeric/FACES): 0 - Related Data Allergies Allergy/AdvReac Type Severity Reaction Status Date / Time No Known Allergies Allergy Verified 11/27/19 18:40 Home Meds: Home Meds Aspirin [Dawes Aspirin EC] 81 mg PO DAILY 03/12/15 [History] Furosemide 20 mg PO DAILY 03/12/15 [History] carvediloL [Carvedilol] 6.25 mg PO BID 03/12/15 [History] Sotalol HCl [Sotalol] 80 mg PO BID 11/23/16 [History] Aloe Vera 1 cap PO DAILY 06/13/17 [History] Lutein-Bilberry 1 cap PO DAILY 06/13/17 [History] Ketoconazole [Nizoral 2% Shampoo] 1 applic .XX DAILY 06/22/18 [History] Potassium Citrate [Potassium Citrate ER] 10 meq PO DAILY 06/22/18 [History] Spironolactone [Aldactone] 25 mg PO DAILY 06/22/18 [History] Past Medical History HEENT History: Reports: Hard of Hearing, Impaired Vision Cardiovascular History: Reports: Arrhythmia, Automatic Implantable Cardioverter Defibrillators, Bypass, CAD, [place], Pacemaker, SOB on Exertion, Other (See Below) Other Cardiovascular History: vitral valve leaking Respiratory History: Reports: SOB Gastrointestinal History: Reports: Colon Polyp, Hemorrhoids, Other (See Below) Other Gastrointestinal History: rectal bleeding, colon tumor Genitourinary History: Reports: BPH, Renal Calculus Musculoskeletal History: Reports: Arthritis, Osteoarthritis Neurological History: Reports: None Psychiatric History: Reports: None Endocrine/Metabolic History: Reports: None Hematologic History: Reports: Anemia, Blood Transfusion(s) Immunologic History: Reports: None Oncologic (Cancer) History: Reports: Colon Dermatologic History: Reports: None - Infectious Disease History Infectious Disease History: Reports: Chicken Pox, Mumps, Rheumatic Fever - Past Surgical History HEENT Surgical History: Reports: Tonsillectomy Cardiovascular Surgical History: Reports: AICD, Coronary Artery Bypass, Other ( See Below) Other Cardiovascular Surgeries/Procedures: pacemaker replaced 08/24/17 GI Surgical History: Reports: Colon, Colonoscopy, Small Bowel Male Surgical History: Reports: TURP-Transurethral Resection of Prostate Musculoskeletal Surgical History: Reports: Arthroscopic Knee Social & Family History - Family History Family Medical History: Noncontributory - Tobacco Use Smoking Status *Q: Never Smoker Second Hand Smoke Exposure: No - Caffeine Use Caffeine Use: Reports: Soda - Recreational Drug Use Recreational Drug Use: No ED ROS GENERAL - Review of Systems Review Of Systems: See Below Constitutional: Reports: No Symptoms HEENT: Reports: No Symptoms Respiratory: Reports: Shortness of Breath Cardiovascular: Reports: Dyspnea on Exertion Endocrine: Reports: No Symptoms GI/Abdominal: Reports: Nausea : Reports: No Symptoms Musculoskeletal: Reports: No Symptoms Skin: Reports: No Symptoms Neurological: Reports: No Symptoms Psychiatric: Reports: No Symptoms Hematologic/Lymphatic: Reports: No Symptoms Immunologic: Reports: No Symptoms ED EXAM, GI/ABD - Physical Exam Exam: See Below Exam Limited By: No Limitations General Appearance: Alert, No Apparent Distress Ears: Normal External Exam Nose: Normal Inspection Throat/Mouth: Normal Inspection Head: Atraumatic, Normocephalic Neck: Normal Inspection Respiratory/Chest: Lungs Clear, Other (mild tachypnea) Cardiovascular: Regular Rate, Rhythm GI/Abdominal Exam: Soft, Non-Tender Back Exam: Normal Inspection Extremities: Pedal Edema Neurological: Alert, Oriented Psychiatric: Normal Affect, Normal Mood Skin Exam: Warm, Dry Course - Vital Signs Last Recorded V/S: Last Vital Signs Temp 35.9 C L 11/27/19 18:52 Pulse 68 11/27/19 20:23 Resp 16 11/27/19 18:52 BP 121/79 11/27/19 20:23 Pulse Ox 90 L 11/27/19 20:23 - Orders/Labs/Meds Orders: Active Orders 24 hr Category Date Time Status EKG Documentation Completion [RC] ASDIRECTED Care 11/27/19 18:58 Active CXR [Chest 2V] [CR] Stat Exams 11/27/19 18:57 Taken EKG 12 Lead [EK] Routine Ther 11/27/19 18:57 Ordered Labs: Laboratory Tests 11/27/19 11/27/19 Range/Units 19:06 19:06 WBC 4.4 L (4.5-11.0) K/uL RBC 4.44 (4.30-5.90) M/uL Hgb 14.0 (12.0-15.0) g/dL Hct 43.9 (40.0-54.0) % MCV 99 H (80-98) fL MCH 32 H (27-31) pg MCHC 32 (32-36) % Plt Count 159 (150-400) K/uL Sodium 145 (140-148) mmol/L Potassium 4.9 (3.6-5.2) mmol/L Chloride 110 H (100-108) mmol/L Carbon Dioxide 26 (21-32) mmol/L Anion Gap 13.9 (5.0-14.0) mmol/L BUN 43 H (7-18) mg/dL Creatinine 1.4 H (0.8-1.3) mg/dL Est Cr Clr Drug Dosing 31.00 mL/min Estimated GFR (MDRD) 48 L (>60) Glucose 106 (74-106) mg/dL Calcium 8.6 (8.5-10.1) mg/dL Total Bilirubin 1.4 H (0.2-1.0) mg/dL AST 21 (15-37) U/L ALT 22 (12-78) U/L Alkaline Phosphatase 71 (46-116) U/L Troponin I 0.038 (0.000-0.056) ng/mL NT-Pro-B Natriuret Pep 29504 H (5-450) pg/mL Total Protein 6.6 (6.4-8.2) g/dL Albumin 3.3 L (3.4-5.0) g/dL Globulin 3.3 (2.3-3.5) g/dL Albumin/Globulin Ratio 1.0 L (1.2-2.2) Meds: Medications Discontinued Medications Generic Name Dose Route Start Last Admin Trade Name Sissy PRN Reason Stop Dose Admin Furosemide 40 mg 11/27/19 19:21 11/27/19 19:50 Lasix PO 11/27/19 19:22 40 mg ONETIME ONE Administration - Re-Assessments/Exams Free Text/Narrative Re-Assessment/Exam: 89-year-old with history of CHF and newly discovered severe mitral regurgitation presents with concerns of dyspnea. On exam is found to mildly tachypneic, O2 sats low 90s, evidence of volume overload in the extremities. Point of care ultrasound was significant for demonstration of severely reduced EF, bilateral small pleural effusions as well as diffuse B lines indicative of pulmonary edema. Given his history of reduced ejection fraction of valvular disease, presentation is consistent with acute on chronic CHF. Will obtain EKG, check basic labs and cardiac markers, as well as obtain chest x -ray. We are giving him a dose of 40 mg of oral Lasix, this is twice home dose. Anticipate he may be safe for discharge home pending results of the studies and ambulatory trial with an increase in the dose of his diuretic. 11/27/19 19:29 Free Text/Narrative Re-Assessment/Exam: Labs significant for very elevated BNP (16 K), mild KAVITHA CXR with cephalization, small bilateral pleural effusions O2 sats remain about 90% on RA Discussed admission vs discharge with patient. His symptoms have been weeks in making and still able to ambulate and get around home so believe it is reasonable to do trial of outpatient management with more aggressive diuresis. His reports good output with 20 mg PO lasix - so will double the dose to 40 mg. Have placed referred for follow-up in clinic in 1-2 days Patient knows they can return to ER at any time if the feel symptoms are worsening. 11/27/19 21:14 Departure - Departure Time of Disposition: 21:17 Disposition: Home, Self-Care 01 Clinical Impression: Acute on chronic systolic CHF (congestive heart failure) - Discharge Information Instructions: Heart Failure, [id number], Preventing Heart Failure Referrals: Roxanna Ovalles DO [Primary Care Provider] - Forms: ED Department Discharge Additional Instructions: You shortness of breath is due to an exacerbation of your CHF We need to remove some of the extra fluid you have in your body, so we are increasing your water pill (furosemide also called lasix) Please take 2 of your lasix pills (total of 40 mg) every morning. Follow up in the clinic this week. If you feel that your breathing is worsening or it's difficult to get by at home please return to the ER. Sepsis Event Note - Evaluation Sepsis Screening Result: No Definite Risk - Focused Exam Vital Signs: Vital Signs Temp Pulse Resp BP Pulse Ox 11/27/19 20:23 68 121/79 90 L 11/27/19 19:52 60 118/65 89 L 11/27/19 19:39 67 113/69 89 L 11/27/19 18:52 35.9 C L 64 16 108/67 93 L 11/27/19 18:29 35.9 C L 64 16 108/67 93 L Date Exam was Performed: 11/27/19 Time Exam was Performed: 21:14 - My Orders Last 24 Hours: My Active Orders 11/27/19 18:57 CXR [Chest 2V] [CR] Stat EKG 12 Lead [EK] Routine 11/27/19 18:58 EKG Documentation Completion [RC] ASDIRECTED - Assessment/Plan Last 24 Hours: My Active Orders 11/27/19 18:57 CXR [Chest 2V] [CR] Stat EKG 12 Lead [EK] Routine 11/27/19 18:58 EKG Documentation Completion [RC] ASDIRECTED
[2019-11-27 20:31] VITALS: BP 121/79; PULSE 68
--- NOTE | 2019-11-28 09:08 | CR ---
CHEST: 2 view CLINICAL HISTORY:Dyspnea COMPARISON:2017 FINDINGS: Heart is enlarged. Pulmonary vascularity is cephalized. Patient has a permanent cardiac pacer/defibrillator. There is a small right effusion and a small to moderate left effusion. There is some patchy density in the left lower lobe which could represent atelectasis or infiltrate. Lungs are generally emphysematous. There is a subcentimeter nodular focus in the right perihilar region. Impression: Cardiomegaly with vascular congestion suggests CHF. Bilateral pleural effusions left greater than right. Patchy left lower lobe density most likely patchy atelectasis but pneumonic infiltrate is not excluded. Subcentimeter nodular focus in the right perihilar region.Short-term follow-up recommended after course of treatment.
== END 2019-11-27 21:40 | disposition home or self-care (01) ==
LOC: JP.ED 18:05
DX: I50.23 Acute on chronic systolic (congestive) heart failure (principal); I25.10 Atherosclerotic heart disease of native coronary artery without angina pectoris; I25.2 Old myocardial infarction; Z79.82 Long term (current) use of aspirin; Z79.899 Other long term (current) drug therapy
CPT/HCPCS: 36415; 71046; 80053; 83880; 84484; 85027; 93005; 93010; 99285; A9270; 99284

== ENCOUNTER 2020-02-25 07:20 | Day surgery (SDC) | payer MEDICARE ==
[~2020-02-25 07:20] MED LIST changes: +Bupivacaine 0.5% 50 ML MDV ONE; +Lidocaine 1% with EPINEPHrine 1:100,000 50 ML MDV ONE; +Midazolam 1 MG/ML 2 ML SDV ONE
[2020-02-25] MEDS ORDERED: Dextrose 5%-Lactated Ringers 1,000 ML IV SCH (07:30)
[2020-02-25 07:42] VITALS: PULSE 60
[2020-02-25] MEDS ORDERED: Sotalol 80 MG Tab PO ONE (08:00)
[2020-02-25] MEDS ORDERED: Carvedilol 3.125 MG Tab PO ONE (08:00)
[2020-02-25] MEDS ORDERED: ceFAZolin 2 GM in Premix Bag 1 BAG IV ONE (09:00)
[2020-02-25] MEDS ORDERED: Bacitracin Oint 1 GM U/D Packet ONE (09:54)
[2020-02-25 11:33] VITALS: BP 102/60
--- NOTE | 2020-03-04 16:20 | OR ---
DATE OF PROCEDURE: 02/25/2020 SURGEON: Arturo Philip MD PREOPERATIVE DIAGNOSIS: Probable basal cell carcinoma posterior and inferior to right ear. POSTOPERATIVE DIAGNOSIS: Probable basal cell carcinoma posterior and inferior to right ear. OPERATIVE PROCEDURE: Excision of probable basal cell carcinoma posterior and inferior to right ear with layered closure ([id number], [id number]). ANESTHESIA: Local plus IV sedation. INDICATION FOR PROCEDURE: An 89-year-old male presenting with probable basal cell carcinoma behind and somewhat inferior to ear. Potential risks of the excision were reviewed with the patient, and he wishes to proceed. DETAILS OF PROCEDURE: The patient was taken to the operating room and placed in a supine position. After IV sedation was administered, he was positioned with the head turned slightly toward the left and the area around the right ear was prepped and draped. The area was anesthetized with 1% lidocaine mixed with Marcaine. An elliptical incision over a long axis of the area of palpable abnormality was noted. Of note, the skin over this area since the last appointment had appeared to be healed, but he still had a nodularity below the skin and it was easily palpable. The excision then continued down through the skin and subcutaneous tissue around the edges of the lesion. The main branch of the facial nerve abutted the lesion and this lesion was then carefully dissected off the facial nerve and removed in, what appeared to be in an intact manner, but with very little margin in the area around the facial nerve itself. Facial nerve was then inspected and found to be intact. The lesion plus margin length was 1.1 cm and incision length 1.8 cm. The incision was closed with some 5-0 Vicryl stitch deep and then a 5-0 Prolene skin stitch. Dressing was applied. The patient was taken to the recovery room in satisfactory condition. Arturo Philip MD /[id number]
== END 2020-02-25 11:45 | disposition home or self-care (01) ==
LOC: JP.SDS 07:20
PROVIDERS: ATTEND Surgery
DX: C44.212 Basal cell carcinoma of skin of right ear and external auricular canal (principal)
CPT/HCPCS: 11642; 12051; 88305; A9270; J0690; J2250; J2704; J3010; J3490; J7121

== ENCOUNTER 2021-02-23 08:37 | Day surgery (SDC) | payer MEDICARE, OTHER, SELFPAY ==
[~2021-02-23 08:37] MED LIST changes: +Bacitracin Oint 1 GM U/D Packet ONE; +Lidocaine 1% 50 ML MDV ONE; -Midazolam 1 MG/ML 2 ML SDV ONE
[2021-02-23 09:06] VITALS: BP 122/62; PULSE 60
[2021-02-23] MEDS ORDERED: Dextrose 5%-Lactated Ringers 1,000 ML IV SCH (09:15)
[2021-02-23] MEDS ORDERED: Sotalol 80 MG Tab PO ONE (09:30)
[2021-02-23] MEDS ORDERED: ceFAZolin 2 GM in Premix Bag 1 BAG IV ONE (09:45)
== END 2021-02-23 12:54 | disposition home or self-care (01) ==
LOC: JP.SDS 08:37
PROVIDERS: ATTEND Surgery
DX: C44.91 Basal cell carcinoma of skin, unspecified (principal); Z53.09 Procedure and treatment not carried out because of other contraindication
CPT/HCPCS: A9270-GY; J2001; J2704; J3010; J3490; J7121

== ENCOUNTER 2021-02-25 08:52 | Day surgery (SDC) | payer MEDICARE ==
[~2021-02-25 08:52] MED LIST changes: -Bacitracin Oint 1 GM U/D Packet ONE; -Lidocaine 1% 50 ML MDV ONE; -Propofol 200 MG/20 ML SDV ONE; -fentaNYL 100 MCG/2 ML SDV ONE
[2021-02-25] MEDS ORDERED: Dextrose 5%-Lactated Ringers 1,000 ML IV SCH (09:30)
[2021-02-25] MEDS ORDERED: Glycopyrrolate 0.2 MG/ML 5 ML MDV ONE (10:15)
[2021-02-25] MEDS ORDERED: Neostigmine Methylsulfate 1 MG/ML 5 ML Syringe ONE (10:15)
[2021-02-25] MEDS ORDERED: ceFAZolin 2 GM in Premix Bag 1 BAG IV ONE (10:15)
[2021-02-25] MEDS ORDERED: Dexamethasone 4 MG/ML SDV ONE ×2 (10:15→11:32)
[2021-02-25] MEDS ORDERED: Propofol 200 MG/20 ML SDV ONE (10:15)
[2021-02-25] MEDS ORDERED: Rocuronium 50 MG/5 ML Vial ONE (10:15)
[2021-02-25] MEDS ORDERED: Ondansetron 4 MG/2 ML SDV ONE (10:15)
[2021-02-25] MEDS ORDERED: Succinylcholine 200 MG/10 ML MDV ONE (10:15)
[2021-02-25] MEDS ORDERED: fentaNYL 250 MCG/5 ML SDV ONE (10:16)
[2021-02-25] MEDS ORDERED: Lidocaine 1% 50 ML MDV ONE (11:16)
[2021-02-25] MEDS ORDERED: Bacitracin Oint 1 GM U/D Packet ONE (11:17)
[2021-02-25] MEDS ORDERED: Mupirocin Oint 22 GM Tube ONE (11:50)
[2021-02-25] MEDS ORDERED: Lactated Ringers 1,000 ML ONE (11:58)
[2021-02-25] MEDS ORDERED: Hydrogen Peroxide 3% Top Soln 240 ML Bottle ONE (12:19)
[2021-02-25] MEDS: Dextrose 5%-Lactated Ringers 1,000 ML IV SCH ×2 (13:46→17:13)
[2021-02-25] MEDS: Pantoprazole 40 MG Tab.CR PO SCH (14:03)
[2021-02-25] MEDS: traMADol 50 MG Tab PO PRN ×2 (14:03→20:46)
[2021-02-25] MEDS: Acetaminophen 325 MG Tab PO SCH ×3 (14:04→21:00)
[2021-02-25] MEDS: ceFAZolin 1 GM in Premix Bag 1 BAG IV SCH (17:14)
[2021-02-25] MEDS: Carvedilol 3.125 MG Tab PO SCH (20:54)
[2021-02-25] MEDS: Ondansetron 4 MG/2 ML SDV IVPUSH PRN (23:59)
[2021-02-26] MEDS: Acetaminophen 325 MG Tab PO SCH ×2 (03:24→09:13)
[2021-02-26] MEDS: ceFAZolin 1 GM in Premix Bag 1 BAG IV SCH ×2 (03:24→09:14)
[2021-02-26] MEDS: Dextrose 5%-Lactated Ringers 1,000 ML IV SCH (05:02)
[2021-02-26] MEDS: Ondansetron 4 MG/2 ML SDV IVPUSH PRN (05:53)
[2021-02-26] MEDS ORDERED: Potassium Chloride 10 MEQ Cap.ER PO SCH (08:00)
[2021-02-26 08:08] VITALS: BP 105/57
[2021-02-26] MEDS ORDERED: Spironolactone 25 MG Tab PO SCH (09:00)
[2021-02-26] MEDS ORDERED: Sotalol 80 MG Tab PO SCH (09:00)
[2021-02-26] MEDS ORDERED: Aspirin 81 MG Tab.EC PO SCH (09:00)
[2021-02-26] MEDS ORDERED: Furosemide 20 MG Tab PO SCH (09:00)
[2021-02-26] MEDS: Carvedilol 3.125 MG Tab PO SCH (09:10)
[2021-02-26] MEDS: Pantoprazole 40 MG Tab.CR PO SCH (09:13)
[2021-02-26 09:16] VITALS: PULSE 65
--- NOTE | 2021-02-26 11:37 | DISCH ---
ADMISSION DIAGNOSIS: Recurrent basal cell carcinoma, right ear. DISCHARGE DIAGNOSIS: Excision and closure of recurrent basal cell carcinoma from inferior to extending up to lower portion of right ear, size 7.5 cm. Date of procedure: 02/25/2021. HISTORY: John Witt is an 89-year-old male who had recurrence of basal cell carcinoma, right ear. After preoperative evaluation and discussion of possible risks and possible complications, he wished to proceed with surgical procedure. HOSPITAL COURSE: John had his surgery on 02/25/2021. He had no operative complications and was discharged on 02/26/2021. PHYSICAL EXAMINATION: GENERAL: John Witt is a pleasant 89-year-old male. He is alert and orientated. VITAL SIGNS: Height is 5 feet 10 inches, weight is 103 pounds. TPR is 97.9, 55, 18, blood pressure 111/47. HEENT: Right ear incision looks good. There is no swelling. Sutures intact. Staff has been putting bacitracin ointment on the incision. HEART: Regular rate and rhythm. LUNGS: Clear. EXTREMITIES: Negative. DISPOSITION: Discharged to home with home health care. HOME MEDICATIONS: 1. Zofran 4 mg p.o. q.4 hours p.r.n. nausea, #30, 2 refills. 2. He is to resume his home medications. FOLLOWUP APPOINTMENT: Arturo Philip, 03/03/2021 at 11 a.m. DIET: Usual diet as tolerated. Drink 8 to 10 glasses of water a day. ACTIVITY: As tolerated. DISCHARGE INSTRUCTIONS: May shower. Keep operative site clean and dry. Using a Q-tip applicator, put Bactroban ointment on incision twice a day. Notify provider if any fever, increased pain, swelling, redness, drainage. /[id number]
--- NOTE | 2021-03-09 16:37 | OR ---
DATE OF PROCEDURE: 02/25/2021 SURGEON: Arturo Philip MD PREOPERATIVE DIAGNOSIS: Recurrent basal cell carcinoma extending from the area inferior to the left ear and extending up to involving the lower aspect of the left external ear and soft tissue posterior to the external ear. POSTOPERATIVE DIAGNOSIS: Recurrent basal cell carcinoma extending from the area inferior to the left ear and extending up to involving the lower aspect of the left external ear and soft tissue posterior to the external ear. OPERATIVE PROCEDURES: 1. Wide excision of basal cell carcinoma beginning inferior to the left ear and extending up to including the area of posterior left ear ([id number]). 2. Partial excision of full-thickness lower aspect of left external ear ([id number]). ANESTHESIA: General. INDICATIONS FOR PROCEDURE: An 89-year-old male presenting with some locally recurrent basal cell carcinoma. This appeared to be excised with unclear margins due to the medium proximity of the tumor to the main branch of the facial nerve as it emerged inferior to the left ear. This has now recurred with some extension to the left ear and the soft tissues posterior to the lower aspect of the left external ear. The plan is to proceed with excision of tumor with grossly clear margins. It would appear to be unrealistic to obtain clear margins at this time due to the proximity of the facial nerve. Clinical brochure is that this patient has a quite limited life expectancy with the age of 89, ejection fraction of only around 25% to 30%, and chronic shortness of breath. Given this, the goal is to keep the basal cell carcinoma reasonably controlled for the duration of his life without having to undergo an extremely medical procedure which would likely require excision of the main left facial nerve as well as radical resection of the external area. Potential risks were reviewed with the patient, the patient's daughter, and the patient's , and they wished to proceed understanding what we are doing today will likely at some point locally recur. DETAILS OF PROCEDURE: The patient was taken to the operating room and after general endotracheal anesthesia was induced, his head was turned somewhat towards the left, and the ear and upper neck areas were prepped and draped. Initially, elliptical incision inferior to the ear over the palpable thickness and including the previous excision was made and carried down through the skin and subcutaneous tissue down to the level of the plane just superior to the facial nerve underneath the ear. The face was draped such that we could monitor the facial musculature traction during the course of the dissection. The initial segment of this resection then came up to the point just below the ear and this was sent as a separate specimen and labeled for pathologic orientation. The incision then extended up to include the soft tissues behind the ear and then extended over to the lower aspect of the external ear. A portion of the posterior ear was removed full-thickness at this point and this mass consisting of soft tissue behind the area as well as portion of the external ear was then delivered from the field and pathologic labeling was placed to orient the pathologist. The area was then irrigated with antibiotic-containing saline solution. The cartilage of the excised ear was then reapproximated with some 4-0 Vicryl stitch and then on the anterior aspect of the external ear that was reapproximated with some interrupted 5-0 Vicryl stitches at the skin level and then the area posterior to the ear extending down inferior to the ear was then closed with layers of 4-0 and 5-0 Vicryl stitch and then running 5-0 Prolene skin stitch. In addition to the area of the external ear excision, the entire incision otherwise was 7.7 cm in length and by definition this would be the lesion plus margin length along with incision length. Bacitracin was applied and the patient was taken to the recovery room in satisfactory condition. Of note, all of the gross tumor was removed, although we are still likely dealing with some microscopic involved margins. Arturo Philip MD /[id number]
== END 2021-02-26 09:45 | disposition home health service (06) ==
LOC: JP.SDS 08:52 → JP.MS 13:25 → JP.SDS 02-26 09:45
PROVIDERS: ATTEND Surgery
DX: C44.212 Basal cell carcinoma of skin of right ear and external auricular canal (principal); C44.81 Basal cell carcinoma of overlapping sites of skin; R06.02 Shortness of breath; I25.10 Atherosclerotic heart disease of native coronary artery without angina pectoris; I48.91 Unspecified atrial fibrillation; Z79.899 Other long term (current) drug therapy; Z85.028 Personal history of other malignant neoplasm of stomach; Z95.0 Presence of cardiac pacemaker
CPT/HCPCS: 11646; 12054; 69110; 88305; A9270; J0330; J0690; J2020; J2405; J2704; J3010; J7120; J7121; J1100; J2001; J2710; J3490

== ENCOUNTER 2021-10-16 08:19 | Emergency (ER) | payer MEDICARE ==
[2021-10-16 08:40] VITALS: BP 124/64; PULSE 60
[2021-10-16] MEDS ORDERED: Sodium Chloride 0.9% 10 ML Syringe FLUSH PRN (08:53)
[2021-10-16] MEDS ORDERED: Ondansetron 4 MG Tab.DIS PO ONE (08:57)
--- NOTE | 2021-10-16 09:06 | EDM.PDOC ---
ED HPI GENERAL MEDICAL PROBLEM - General Chief Complaint: General Stated Complaint: AFIB, FEET ARE SWOLLEN Time Seen by Provider: 10/16/21 08:45 Source of Information: Reports: Patient, Old Records, RN History Limitations: Reports: No Limitations - History of Present Illness INITIAL COMMENTS - FREE TEXT/NARRATIVE: 89 yo male brought in by his due to frequent small urinations without dysuria, mild SOB, and mild nausea without vomiting. No apparent fever or chest pain. Orthopnea is not worse than usual. Dr. Ovalles is his primary. He didn't sleep well last night. Onset: Gradual Onset Date: 10/15/21 Duration: Day(s): (1+), Getting Worse Location: Reports: Pelvis Quality: Reports: Other (denies pain) Severity: Moderate Improves with: Reports: None Worsens with: Reports: None Context: Reports: Other (See HPI) Associated Symptoms: Reports: Nausea/Vomiting (no vomiting), Shortness of Breath (slightly worse than usual). Denies: Chest Pain, Fever/Chills, Headaches Treatments [employer]ICIAN: Reports: Other (see below) (none) Headache Pain Score (Numeric/FACES): 2 - Related Data Allergies Allergy/AdvReac Type Severity Reaction Status Date / Time No Known Allergies Allergy Verified 10/16/21 08:41 Home Meds: Home Meds Aspirin [Waller Aspirin EC] 81 mg PO DAILY 03/12/15 [History] Furosemide 20 mg PO DAILY 03/12/15 [History] Sotalol HCl [Sotalol] 80 mg PO DAILY 11/23/16 [History] Potassium Citrate [Potassium Citrate ER] 10 meq PO DAILY 06/22/18 [History] carvediloL [Carvedilol] 3.125 mg PO BID 02/24/20 [History] Spironolactone [Aldactone] 25 mg PO DAILY 02/18/21 [History] Past Medical History HEENT History: Reports: Hard of Hearing, Impaired Vision Cardiovascular History: Reports: Afib, Arrhythmia, Automatic Implantable Cardioverter Defibrillators, Bypass, CAD, Hypertension, SD, Pacemaker, SOB on Exertion, Other (See Below) Other Cardiovascular History: vitral valve leaking Respiratory History: Reports: SOB Gastrointestinal History: Reports: Colon Polyp, Hemorrhoids, Other (See Below) Other Gastrointestinal History: rectal bleeding, colon tumor Genitourinary History: Reports: BPH, Renal Calculus Musculoskeletal History: Reports: Arthritis, Osteoarthritis Neurological History: Reports: None Psychiatric History: Reports: None Endocrine/Metabolic History: Reports: None Hematologic History: Reports: Anemia, Blood Transfusion(s) Immunologic History: Reports: None Oncologic (Cancer) History: Reports: Basal Cell Carcinoma Dermatologic History: Reports: Other (See Below) Other Dermatologic History: basal cell carcinamo right ear - Infectious Disease History Infectious Disease History: Reports: Chicken Pox, Rheumatic Fever - Past Surgical History Head Surgeries/Procedures: Reports: None HEENT Surgical History: Reports: Tonsillectomy Cardiovascular Surgical History: Reports: AICD, Coronary Artery Bypass, Other (See Below) Other Cardiovascular Surgeries/Procedures: pacemaker replaced 08/24/17 Respiratory Surgical History: Reports: None GI Surgical History: Reports: Colon, Colonoscopy, Small Bowel Male Surgical History: Reports: TURP-Transurethral Resection of Prostate Endocrine Surgical History: Reports: None Neurological Surgical History: Reports: None Musculoskeletal Surgical History: Reports: Arthroscopic Knee Oncologic Surgical History: Reports: None Dermatological Surgical History: Reports: None Social & Family History - Family History Family Medical History: No Pertinent Family History - Tobacco Use Tobacco Use Status *Q: Never Tobacco User - Caffeine Use Caffeine Use: Reports: None ED ROS GENERAL - Review of Systems Review Of Systems: See Below Constitutional: Reports: Malaise. Denies: Fever, Chills HEENT: Reports: No Symptoms Respiratory: Reports: Shortness of Breath (slightly worse than usual) Cardiovascular: Reports: No Symptoms Endocrine: Reports: No Symptoms GI/Abdominal: Reports: Nausea. Denies: Diarrhea, Hematemesis, Vomiting : Reports: Frequency Musculoskeletal: Reports: No Symptoms Skin: Reports: No Symptoms Neurological: Reports: No Symptoms ED EXAM, GENERAL - Physical Exam Exam: See Below Exam Limited By: No Limitations General Appearance: Alert, WD/WN, No Apparent Distress, Thin Eye Exam: Bilateral Eye: Normal Inspection Ears: Normal External Exam, Normal Canal, Hearing Loss Ear Exam: Bilateral Ear: Auricle Normal, Canal Normal Nose: Normal Inspection, No Blood Throat/Mouth: Normal Inspection, Normal Lips, Normal Oropharynx, Normal Voice, No Airway Compromise Head: Atraumatic, Normocephalic Neck: Normal Inspection Respiratory/Chest: No Respiratory Distress, Crackles (lower lung hall, ? R>L) Cardiovascular: Regular Rate, Rhythm, No Edema GI/Abdominal: Soft, Non-Tender, No Distention. No: Distended Extremities: Normal Inspection, Normal Range of Motion, Non-Tender, Pedal Edema (trace both LE's) Neurological: Alert, Oriented, CN II-XII Intact, Normal Cognition, No Motor/Sensory Deficits Psychiatric: Normal Affect, Normal Mood Skin Exam: Warm, Dry, Intact, Normal Color, No Rash Course - Vital Signs Last Recorded V/S: Last Vital Signs Temp 36.3 C 10/16/21 08:37 Pulse 60 10/16/21 08:37 Resp 28 H 10/16/21 08:37 BP 124/64 10/16/21 08:37 Pulse Ox 94 L 10/16/21 08:37 - Orders/Labs/Meds Orders: Active Orders 24 hr Category Date Time Status Bladder Scan [RC] ASDIRECTED Care 10/16/21 08:54 Active Cardiac Monitoring [RC] .As Directed Care 10/16/21 08:50 Active CULTURE URINE [RM] Stat Lab 10/16/21 10:51 Ordered Sodium Chloride 0.9% [Saline Flush] Med 10/16/21 08:53 Active 10 ml FLUSH ASDIRECTED PRN Isolation [COMM] Stat Oth 10/16/21 09:02 Ordered Saline Lock Insert [OM.PC] Routine Oth 10/16/21 08:53 Ordered Medication Orders Sodium Chloride (Sodium Chloride 0.9% 10 Ml Syringe) 10 ml FLUSH ASDIRECTED PRN PRN Reason: Keep Vein Open Last Admin: 10/16/21 09:14 Dose: 10 ml Documented by: PREILOR Labs: Laboratory Tests 10/16/21 10/16/21 10/16/21 Range/Units 08:52 09:00 09:00 WBC 7.5 (4.5-11.0) K/uL RBC 4.07 L (4.30-5.90) M/uL Hgb 13.2 (12.0-15.0) g/dL Hct 40.2 (40.0-54.0) % MCV 99 H (80-98) fL MCH 32 H (27-31) pg MCHC 33 (32-36) % Plt Count 204 (150-400) K/uL Sodium 145 (140-148) mmol/L Potassium 4.4 (3.6-5.2) mmol/L Chloride 110 H (100-108) mmol/L Carbon Dioxide 23 (21-32) mmol/L Anion Gap 16.4 H (5.0-14.0) mmol/L BUN 34 H (7-18) mg/dL Creatinine 1.0 (0.8-1.3) mg/dL Est Cr Clr Drug Dosing 41.77 mL/min Estimated GFR (MDRD) > 60 (>60) Glucose 102 (74-106) mg/dL Calcium 9.0 (8.5-10.1) mg/dL Magnesium 2.5 H (1.8-2.4) mg/dL Urine Color (YELLOW) Urine Appearance (CLEAR) Urine pH (5.0-8.0) Ur Specific [place] (1.008-1.030) Urine Protein (NEGATIVE) mg/dL Urine Glucose (UA) (NEGATIVE) mg/dL Urine Ketones (NEGATIVE) mg/dL Urine Occult Blood (NEGATIVE) Urine Nitrite (NEGATIVE) Urine Bilirubin (NEGATIVE) Urine Urobilinogen (0.2-1.0) EU/dL Ur Leukocyte Esterase (NEGATIVE) Urine RBC (0-5) Urine WBC (0-5) Ur Epithelial Cells Amorphous Sediment Urine Bacteria Urine Mucus Influenza Type A RNA (NEGATIVE) RSV RNA (INAAT) (NEGATIVE) Influenza Type B RNA (NEGATIVE) SARS-CoV-2 RNA (JAD) (NEGATIVE) 10/16/21 10/16/21 Range/Units 09:15 10:24 WBC (4.5-11.0) K/uL RBC (4.30-5.90) M/uL Hgb (12.0-15.0) g/dL Hct (40.0-54.0) % MCV (80-98) fL MCH (27-31) pg MCHC (32-36) % Plt Count (150-400) K/uL Sodium (140-148) mmol/L Potassium (3.6-5.2) mmol/L Chloride (100-108) mmol/L Carbon Dioxide (21-32) mmol/L Anion Gap (5.0-14.0) mmol/L BUN (7-18) mg/dL Creatinine (0.8-1.3) mg/dL Est Cr Clr Drug Dosing mL/min Estimated GFR (MDRD) (>60) Glucose (74-106) mg/dL Calcium (8.5-10.1) mg/dL Magnesium (1.8-2.4) mg/dL Urine Color Yellow (YELLOW) Urine Appearance Slightly cloudy A (CLEAR) Urine pH 6.0 (5.0-8.0) Ur Specific [place] >= 1.030 (1.008-1.030) Urine Protein 30 H (NEGATIVE) mg/dL Urine Glucose (UA) Negative (NEGATIVE) mg/dL Urine Ketones Negative (NEGATIVE) mg/dL Urine Occult Blood Trace-intact H (NEGATIVE) Urine Nitrite Positive H (NEGATIVE) Urine Bilirubin Negative (NEGATIVE) Urine Urobilinogen 0.2 (0.2-1.0) EU/dL Ur Leukocyte Esterase Trace H (NEGATIVE) Urine RBC 0-5 (0-5) Urine WBC 10-20 H (0-5) Ur Epithelial Cells Not seen Amorphous Sediment Not seen Urine Bacteria Moderate Urine Mucus Few Influenza Type A RNA Negative (NEGATIVE) RSV RNA (INAAT) Negative (NEGATIVE) Influenza Type B RNA Negative (NEGATIVE) SARS-CoV-2 RNA (JAD) Negative (NEGATIVE) Meds: Medications Generic Name Dose Route Start Last Admin Trade Name Frecris PRN Reason Stop Dose Admin Sodium Chloride 10 ml 10/16/21 08:53 10/16/21 09:14 Sodium Chloride 0.9% 10 Ml Syringe FLUSH 10 ml ASDIRECTED PRN Administration Keep Vein Open Discontinued Medications Generic Name Dose Route Start Last Admin Trade Name Frecris PRN Reason Stop Dose Admin Ondansetron HCl 4 mg 10/16/21 08:57 10/16/21 09:14 Ondansetron 4 Mg Tab.Dis PO 10/16/21 08:58 4 mg ONETIME ONE Administration Phenazopyridine HCl 190 mg 10/16/21 10:51 Phenazopyridine 95 Mg Tab PO 10/16/21 10:52 ONETIME ONE Departure - Departure Time of Disposition: 11:00 Disposition: Home, Self-Care 01 Condition: Fair Clinical Impression: Cystitis - Discharge Information *PRESCRIPTION DRUG MONITORING PROGRAM REVIEWED*: Not Applicable *COPY OF PRESCRIPTION DRUG MONITORING REPORT IN PATIENT JEANNA: Not Applicable Instructions: Urinary Tract Infection, Adult, [id number] Referrals: Roxanna Ovalles DO [Primary Care Provider] - Forms: ED Department Discharge Additional Instructions: Take cephalexin every 8 hrs until gone. Use AZO per package instructions as needed for dysuria. Drink more fluids than you have been. Recheck with your provider by Monday afternoon. Return for a fever. Sepsis Event Note (ED) - Focused Exam Vital Signs: Vital Signs Temp Pulse Resp BP Pulse Ox 10/16/21 08:37 36.3 C 60 28 H 124/64 94 L - My Orders Last 24 Hours: My Active Orders 10/16/21 08:50 Cardiac Monitoring [RC] .As Directed 10/16/21 08:53 Sodium Chloride 0.9% [Saline Flush] 10 ml FLUSH ASDIRECTED PRN Saline Lock Insert [OM.PC] Routine 10/16/21 08:54 Bladder Scan [RC] ASDIRECTED 10/16/21 09:02 Isolation [COMM] Stat 10/16/21 10:51 CULTURE URINE [RM] Stat - Assessment/Plan Last 24 Hours: My Active Orders 10/16/21 08:50 Cardiac Monitoring [RC] .As Directed 10/16/21 08:53 Sodium Chloride 0.9% [Saline Flush] 10 ml FLUSH ASDIRECTED PRN Saline Lock Insert [OM.PC] Routine 10/16/21 08:54 Bladder Scan [RC] ASDIRECTED 10/16/21 09:02 Isolation [COMM] Stat 10/16/21 10:51 CULTURE URINE [RM] Stat
[2021-10-16 09:53] LABS: CORONAVIRUS COVID-19 NAA NEGATIVE (NEGATIVE)
[2021-10-16] MEDS ORDERED: Phenazopyridine 95 MG Tab PO ONE (10:51)
== END 2021-10-16 11:13 | disposition home or self-care (01) ==
LOC: JP.ED 08:19
DX: N30.90 Cystitis, unspecified without hematuria (principal); I48.91 Unspecified atrial fibrillation; I25.10 Atherosclerotic heart disease of native coronary artery without angina pectoris; I10 Essential (primary) hypertension; I25.2 Old myocardial infarction; M19.90 Unspecified osteoarthritis, unspecified site; Z95.0 Presence of cardiac pacemaker; Z79.82 Long term (current) use of aspirin; Z20.822 Contact with and (suspected) exposure to COVID-19
CPT/HCPCS: 0241U; 36415; 80048; 81001; 83735; 85027; 87086; 99284; A9270

== ENCOUNTER 2021-12-05 18:05 | Emergency (ER) | payer MEDICARE ==
[2021-12-05 19:20] LABS: CORONAVIRUS COVID-19 NAA NEGATIVE (NEGATIVE)
[2021-12-05 19:26] VITALS: BP 109/53; PULSE 60
== END 2021-12-05 22:30 | disposition home or self-care (01) ==
LOC: JP.ED 18:05
DX: N20.0 Calculus of kidney (principal); N21.0 Calculus in bladder; N30.00 Acute cystitis without hematuria; J18.9 Pneumonia, unspecified organism; I48.91 Unspecified atrial fibrillation; I25.10 Atherosclerotic heart disease of native coronary artery without angina pectoris; I10 Essential (primary) hypertension; I25.2 Old myocardial infarction; N40.0 Benign prostatic hyperplasia without lower urinary tract symptoms; M19.90 Unspecified osteoarthritis, unspecified site; R29.6 Repeated falls; Z95.0 Presence of cardiac pacemaker; Z95.1 Presence of aortocoronary bypass graft; Z79.82 Long term (current) use of aspirin; Z20.822 Contact with and (suspected) exposure to COVID-19
CPT/HCPCS: 0241U; 36415; 51701; 70450; 71046; 72125; 74176; 80053; 81001; 83605; 85025; 86140; 99285; 99283